=== PATIENT | male | born 1955 | race Caucasian/White ===

== ENCOUNTER → 2018-03-12 10:22 | Outpatient (CLI) | payer OTHER, SELFPAY ==
[2018-03-12 12:21] LABS: Hemoglobin A1c 9.6 % (4.2-6.3)
== END ==
PROVIDERS: Family Provider Family Medicine; PCP Family Medicine; Visit Provider Nurse Practitioner Family
DX: E11.9 Type 2 diabetes mellitus without complications (principal)
CPT/HCPCS: 36415; 83036

== ENCOUNTER 2018-04-04 08:04 | Outpatient (RCR) | payer OTHER, SELFPAY | END 2018-04-20 23:59 | LOC: DC 08:04 | PROVIDERS: Family Provider Family Medicine; PCP Family Medicine; Visit Provider Nurse Practitioner Family | DX: E11.9 Type 2 diabetes mellitus without complications (principal); Z71.3 Dietary counseling and surveillance | CPT/HCPCS: G0108 ==

== ENCOUNTER 2018-05-16 08:30 | Outpatient (RCR) | payer OTHER, SELFPAY | END 2018-05-16 23:59 | LOC: DC 08:30 | PROVIDERS: Family Provider Family Medicine; PCP Family Medicine; Visit Provider Nurse Practitioner Family | DX: E11.9 Type 2 diabetes mellitus without complications (principal); Z71.3 Dietary counseling and surveillance | CPT/HCPCS: 97802; 97803 ==

== ENCOUNTER → 2018-06-12 07:57 | Outpatient (CLI) | payer OTHER, SELFPAY ==
[2018-06-12 10:48] LABS: Microalbumin,Random Urine 41.3 mg/L (NO RANGE EST.)
[2018-06-12 10:57] LABS: Hemoglobin A1c 8.3 % (4.2-6.3)
== END ==
PROVIDERS: Family Provider Family Medicine; PCP Family Medicine; Visit Provider Nurse Practitioner Family
DX: I10 Essential (primary) hypertension (principal); E11.9 Type 2 diabetes mellitus without complications
CPT/HCPCS: 36415; 82043; 82570; 83036

== ENCOUNTER 2018-06-27 11:54 | Outpatient (RCR) | payer OTHER, SELFPAY | END 2018-07-21 23:59 | LOC: DC 11:54 | PROVIDERS: Family Provider Family Medicine; PCP Family Medicine; Visit Provider Nurse Practitioner Family | DX: E11.9 Type 2 diabetes mellitus without complications (principal); Z71.3 Dietary counseling and surveillance ==

== ENCOUNTER 2018-07-25 08:36 | Outpatient (RCR) | payer OTHER, SELFPAY | END 2018-08-21 23:59 | LOC: DC 08:36 | PROVIDERS: Family Provider Family Medicine; PCP Family Medicine; Visit Provider Nurse Practitioner Family | DX: E11.9 Type 2 diabetes mellitus without complications (principal); Z71.3 Dietary counseling and surveillance ==

== ENCOUNTER → 2018-08-14 11:43 | Outpatient (CLI) | payer OTHER, SELFPAY ==
[2018-08-14 14:32] LABS: Hemoglobin A1c 7.7 % (4.2-6.3)
== END ==
PROVIDERS: Family Provider Nurse Practitioner Family; PCP Nurse Practitioner Family; Referring Provider Physician Assistant Surgical; Visit Provider Physician Assistant Surgical
DX: E11.9 Type 2 diabetes mellitus without complications (principal); M17.12 Unilateral primary osteoarthritis, left knee
CPT/HCPCS: 36415; 83036

== ENCOUNTER → 2018-09-18 07:13 | Outpatient (CLI) | payer OTHER, SELFPAY ==
[2018-09-18 10:17] LABS: Absolute Neutrophil Count 3.8 X10^3/uL (2.0-7.7); Basophil# 0.04 X10^3/uL; Basophil% 0.6 % (0-1); Eosinophil# 0.17 X10^3/uL; Eosinophils% 2.4 % (0-5); Hematocrit 47.4 % (40-54); Hemoglobin 15.6 g/dl (13.0-16.5); Lymphocyte % 37.3 % (19-41); Mean Corp Hgb Conc 32.9 g/gl (32-36); Mean Corpuscular Hgb 30.4 pg (27.0-32.0); Mean Corpuscular Volume 92.4 fL (80-94); Mean Platelet Vol. 10.7 fl (6.2-12.0); Monocyte# 0.54 X10^3/uL; Monocyte% 7.5 % (0-10); Neutrophil # 3.77 X10^3/uL (2.7-7.7); Neutrophil % 52.1 % (47-70); POSITIVE COUNT NO; POSITIVE DIFFERENTIAL NO; POSITIVE MORPHOLOGY NO; Platelet Count 238 K/mm3 (150-450); RBC Distribution Width CV 13.1 % (11.6-14.6); RBC Distribution Width SD 44.5 fl (35.1-43.9); Red Blood Count 5.13 M/mm3 (4.6-6.2); White Blood Count 7.2 K/mm3 (4.4-11.0)
[2018-09-18 10:30] LABS: Anion Gap 7 (5-15); BUN 15 mg/dL (7-18); BUN/Creat Ratio 15.6 RATIO (10-20); Calcium,Total 8.6 mg/dL (8.5-10.1); Chloride 107 mmol/L (98-107); Cholesterol 142 mg/dL (200); Creatinine, Serum 0.96 mg/dL (0.70-1.30); EST Glomerular Filtration Rate 83 mL/min (>60); Est Glom Filt Rate - Afr Amer 101 mL/min (>60); Glucose 156 mg/dL (74-106); High Density Lipoprotein 35 mg/dL; Potassium 3.8 mmol/L (3.5-5.1); Sodium Level 144 mmol/L (136-145); Triglycerides 136 mg/dL; Very Low Density Lipoprotein 27 mg/dL (5-40)
[2018-09-18 10:33] LABS: Hemoglobin A1c 8.1 % (4.2-6.3)
--- NOTE | 2018-09-18 10:34 | RAD_ITS ---
HISTORY: pre-op clearance EXAM: XR Chest 2 Views: COMPARISON: None FINDINGS: Normal heart size. Right upper lobe small calcified granuloma. On the PA view, and approximately 9 mm nodular opacity projects over the anterolateral left sixth rib. Diagnostic considerations would include benign summation shadow, nipple artifact, or possibly pulmonary nodule. No vascular congestion, pleural effusion, or acute pulmonary infiltration. No pneumothorax. Hypertrophic degenerative changes of the lower dorsal spine. RAD/Chest PA and Lateral IMPRESSION: 1. Left lung nipple shadow, benign summation density, or possibly pulmonary nodule. 2. Recommend repeat PA view chest with nipple markers together with AP lordotic chest. 3. No pneumonia or acute disease. 4. Old granulomatous disease. at 0515 Reported and signed by: Estuardo Emery MD Electronically Signed: Estuardo Emery, at 5:39 EST Tel , Service support ,
--- NOTE | 2018-09-18 10:45 | EKG12_ITS ---
Test Reason : PRE-OP Blood Pressure : / mmHG Vent. Rate : 081 BPM Atrial Rate : 081 BPM P-R Int : 148 ms QRS Dur : 088 ms QT Int : 374 ms P-R-T Axes : 032 008 077 degrees QTc Int : 434 ms Normal sinus rhythm Normal ECG Confirmed by MEG GARCIA, KANNAN ([id number]), fan mail editor ADONAY FRANKLIN ([id number]) on 09/20/2018 2:00:21 PM Referred By: Mike Nickerson Confirmed By:KANNAN WEAVER MD
--- OUTSIDE RECORDS SUMMARY | 2018-11-13 11:47 | XMS RPT_ITS ---
:1955 Author Organization OHIP Support Name Relationship Address Phone JULIETTE [place] Unavailable [address] + [place] [address] NUCOR Unavailable [address] +[place] [address] ONDINA, JULIETTE Unavailable [address] + [place] [address] NUCOR Unavailable [address] +[place] [address] ONDINA, JULIETTE Unavailable [address] + [place] [address] ONDINA, JULITETE Unavailable [address] + [place] [address] ONDINA, JULIETTE Unavailable [address] + [place] [address] NUCOR Unavailable [address] +[place] [address] ONDINA, JULIETTE Unavailable [address] + [place] [address] NUCOR Unavailable [address] +[place] [address] ONDINA, JULIETTE Unavailable [address] + [place] [address] NUCOR Unavailable [address] +[place] [address] ONDINA, JULIETTE Unavailable [address] + [place] [address] NUCOR Unavailable [address] +[place] [address] ONDINA, JULIETTE Unavailable [address] + [place] [address] NUCOR Unavailable [address] +[place] [address] ONDINA, JULIETTE Unavailable [address] + [place] [address] ONDINA, JULIETTE Unavailable [address] + [place] [address] ONDNIA, JULIETTE Unavailable [address] + [place] [address] ONDINA, JULIETTE Unavailable [address] + [place] [address] ONDINA, JULIETTE Unavailable [address] + [place] [address] ONDINA, JULIETTE Unavailable [address] + [place] [address] ONDINA, JULIETTE Unavailable [address] + [place] [address] ONDINA, JULIETTE Unavailable [address] + [place] [address] ONDINA, JULIETTE Unavailable [address] + [place] [address] NUCOR Unavailable [address] +[place] [address] NUCOR Unavailable [address] +[place] [address] NUCOR Unavailable [address] +[place] [address] NUCOR Unavailable [address] +[place] [address] NUCOR Unavailable [address] +[place] [address] NUCOR Unavailable UNK +[place] [address] NUCOR Unavailable UNK +[place] [address] ONDINA, JULIETTE Unavailable [address] + [place] [address] NUCOR Unavailable [address] +[place] [address] NUCOR Unavailable UNK +[place] [address] NUCOR Unavailable UNK +[place] [address] NUCOR Unavailable UNK +[place] [address] NUCOR Unavailable UNK +[place] [address] NUCOR Unavailable UNK +[place] [address] NUCOR Unavailable UNK +[place] [address] ONDINA, JULIETTE Unavailable [address] + [place] [address] ONDINA, JULIETTE Unavailable [address] + [place] [address] ONDINA, JULIETTE Unavailable [address] + [place] [address] ONDINA, JULIETTE Unavailable [address] + [place] [address] R Unavailable Unavailable Unavailable ONDINAELIDIA WHITMORERA Unavailable [address] + [place] [address] ONDINA, JULIETTE Unavailable [address] + [place] [address] Care Team Providers Name Role Phone SHER HAYES DOTabitha Attending Unavailable BROWN, NIURKA Primary Care Unavailable BROWN, NIURKA Attending Unavailable BROWN, NIURKA Primary Care Unavailable BROWN, NIURKA Attending Unavailable BROWN, NIURKA Primary Care Unavailable RICKI RIVERA MD Attending Unavailable BROWN, NIURKA Primary Care Unavailable DELROY FLORENCE MD Attending Unavailable BROWN, NIURKA Primary Care Unavailable DELROY FLORENCE MD Attending Unavailable BROWN, NIURKA Primary Care Unavailable DELROY FLORENCE MD Attending Unavailable BROWN, NIURKA Primary Care Unavailable DELROY FLORENCE MD Attending Unavailable BROWN, NIURKA Primary Care Unavailable Mike Nickerson CHILD DEVELOPMENT PROFESSOR-C Attending Unavailable Brown, Niurka Referring Unavailable Yumiko Carreon Attending Unavailable NickersonMike CHILD DEVELOPMENT PROFESSOR-C Attending Unavailable Brown, Niurka Referring Unavailable Brown, Niurka Primary Care Unavailable NickersonMike che CHILD DEVELOPMENT PROFESSOR-C Attending Unavailable NickersonMike CHILD DEVELOPMENT PROFESSOR-C Referring Unavailable Brown, Niurka Primary Care Unavailable NickersonMike CHILD DEVELOPMENT PROFESSOR-C Attending Unavailable Brown, Niurka Primary Care Unavailable NickersonMike CHILD DEVELOPMENT PROFESSOR-C Attending Unavailable Brown, Niurka Primary Care Unavailable NickersonMike che CHILD DEVELOPMENT PROFESSOR-C Attending Unavailable Brown, Niurka Referring Unavailable Brown, Niurka Primary Care Unavailable NickersonMike che CHILD DEVELOPMENT PROFESSOR-C Attending Unavailable Brown, Niurka Referring Unavailable Brown, Niurka Primary Care Unavailable NickersonMike che CHILD DEVELOPMENT PROFESSOR-C Attending Unavailable Brown, Niurka Primary Care Unavailable Yumiko Carreon Attending Unavailable Gladis Lockett Attending Unavailable Mike Nickerson CHILD DEVELOPMENT PROFESSOR-C Attending Unavailable Mike Nickerson CHILD DEVELOPMENT PROFESSOR-C Referring Unavailable Brown, Niurka Primary Care Unavailable NickersonMike CHILD DEVELOPMENT PROFESSOR-C Attending Unavailable Brown, Niurka Referring Unavailable Brown, Niurka Primary Care Unavailable NickersonMike CHILD DEVELOPMENT PROFESSOR-C Attending Unavailable Brown, Niurka Primary Care Unavailable Jose Raul [place]-C Attending Unavailable Jose Raul [place] PA-C Referring Unavailable NickersonMike CHILD DEVELOPMENT PROFESSOR-C Primary Care Unavailable Brown, Niurka Attending Unavailable Brown, Niurka Referring Unavailable NickersonMike che CHILD DEVELOPMENT PROFESSOR-C Attending Unavailable Mike Nickerson CHILD DEVELOPMENT PROFESSOR-C Referring Unavailable Nickerson, Mike CHILD DEVELOPMENT PROFESSOR-C Primary Care Unavailable Nickerson, Mike CHILD DEVELOPMENT PROFESSOR-C Attending Unavailable Niurka Wilson Referring Unavailable [facility] Attending Unavailable Nickerson, Mike CHILD DEVELOPMENT PROFESSOR-C Referring Unavailable Nickerson, Mike CHILD DEVELOPMENT PROFESSOR-C Primary Care Unavailable Nickerson, Mike CHILD DEVELOPMENT PROFESSOR-C Consulting Unavailable Nickerson, Mike CHILD DEVELOPMENT PROFESSOR-C Attending Unavailable Brown, Niurka Referring Unavailable Nickerson, Mike CHILD DEVELOPMENT PROFESSOR-C Attending Unavailable Nickerson, Mike CHILD DEVELOPMENT PROFESSOR-C Referring Unavailable Brown, Niurka Primary Care Unavailable Isauro, Israel Attending Unavailable Nickerson, Mike CHILD DEVELOPMENT PROFESSOR-C Referring Unavailable PROBLEMS PROBLEMS DATE TYPE CONDITION / CODE ATTENDING STATUS SOURCE 09/20/2018 Unknown Z01.818 - Encounter [facility] for other Community preprocedural Hospital examination / Repository Z01.818(ICD-10) 09/18/2018 Unknown E11.9 - Type 2 Nickerson, Mike [facility] diabetes mellitus CHILD DEVELOPMENT PROFESSOR-C Community without Hospital complications / Repository E11.9(ICD-10) 09/18/2018 Unknown E78.5 - Nickerson, Mike [facility] Hyperlipidemia, CHILD DEVELOPMENT PROFESSOR-C Community unspecified / Hospital E78.5(ICD-10) Repository 09/30/2018 Unknown I10 - Essential [facility]uro, [facility] (primary) [facility] hypertension / Hospital I10(ICD-10) Repository 08/14/2018 Unknown M17.12 - Unilateral [place], [facility] [place] primary Jose Raul PA-[facility] osteoarthritis, Hospital left knee / Repository M17.12(ICD-10) 01/15/2018 Unknown M25.551 - Pain in Nickerson, Mike [facility] [place] right hip / CHILD DEVELOPMENT PROFESSOR-C Community M25.551(ICD-10) Hospital Repository 01/15/2018 Unknown S79.911A - Nickerson, Mike [facility] [place] Unspecified injury CHILD DEVELOPMENT PROFESSOR-C [facility] of right hip, Hospital initial encounter / Repository S79.911A(ICD-10) PROCEDURES PROCEDURES No Procedure Records FoundRESULTS RESULTS CHEST 2 V W/ Observed: 09/26/2018 Status: F Source: [place] APICAL/LORDOTIC 10:18 AM [facility] REPOSITORY [facility] Imaging Services [address] [place] [address] Chest 2 V w/ Apical/Lordotic MR#: [id number] Acct: [id number] Name: RASHID NJ Rep #: [id number] : 1955 M 63 From: Ino Larios DO PCP: Niurka Wilson DO Status: REG CLI Study: Chest 2 V w/ Apical/Lordotic Date of Exam: 09/26/18 Exam# [id number] Ordering Dr: Mike Nickesron CHILD DEVELOPMENT PROFESSOR-C STUDY: X-RAY CHEST REASON FOR EXAM: Male, 63 years old. Questionable nodule. TECHNIQUE: PA and lateral views of the chest. COMPARISON: September 18, 2019. FINDINGS: Nipple markers were utilized Lungs well-expanded. There is a stable nodule in the right upper lobe. A questionable nodule at the left lung base correlates with the nipple marker. There is no demonstrated pleural abnormality. Normal size heart. Normal mediastinum and calista. Normal visualized pulmonary arteries. Normal visualized aortic arch and descending thoracic aorta. There are diffuse degenerative changes of the visualized thoracic spine. There is degenerative osteoarthritis of the bilateral shoulders. There is no demonstrated abnormality of the visualized soft tissue structures of the upper abdomen. RAD/Chest 2 V w/ Apical/Lordotic IMPRESSION: 1. Old granulomatous disease without acute cardiopulmonary process or interval change. 2. The questionable nodule in the left lung base on the prior study correlates with the patient's left nipple. Electronically Signed: Ino Larios DO at 21:06 EST Tel [phone], Service support , CC: Niurka Wilson DO; Mike Nickerson NP Certified Personal Finance Counselor: Signed INTERNAL MEDICINE Observed: 09/24/2018 Status: F Source: [place] OFFICE VISIT 9:55 AM [facility] Internal Medicine [facility] [place] [address] OFFICE VISIT Date of Service: 09/24/18 MR#: [id number] Acct: [id number] Name: RASHID NJ Rep #: [id number] : 1955 Provider: Mike Nickerson NP Age/Sex: 63/M Location: [facility] Status: Signed Intake Vital Signs09/24/18 Body Mass Index (BMI) 29.7 Intake Visit Reasons: A1C 8.1/DR. Garcia CANCELLED SURGERY UNTIL IT DROPS Chief Complaint: A1C needs lowered Is patient in pain?: Yes (right hip) Pain scale (1-10): 10 Allergies acetaminophen [From NyQuil] Allergy (Severe, Verified 09/03/18 14:27) rash dextromethorphan [From NyQuil] Allergy (Severe, Verified 09/03/18 14:27) rash doxylamine [From NyQuil] Allergy (Severe, Verified 09/03/18 14:27) rash Penicillins Allergy (Severe, Verified 09/03/18 14:27) Other pseudoephedrine [From NyQuil] Allergy (Severe, Verified 09/03/18 14:27) rash night quil Allergy (Severe, Uncoded 09/03/18 14:27) rash Medications lovastatin 40 mg tablet 40 mg PO QDAY 03/12/18 [History Confirmed 09/03/18] omeprazole magnesium 20 mg tablet,delayed release 20 mg PO QDAY 03/12/18 [History Confirmed 09/03/18] amlodipine 10 mg tablet 10 mg PO QDAY tab 05/01/18 [History Confirmed 09/03/18] blood pressure monitor kit See Dose Instructions .ROUTE .MEDSUPPLY #1 ea 05/01/18 [Rx Confirmed 09/03/18] empagliflozin 25 mg tablet 25 mg PO QAM #90 tab 06/04/18 [Rx Confirmed 09/03/18] glipizide 5 mg tablet 5 mg PO BID #60 tab 06/04/18 [Rx Confirmed 09/03/18] valsartan 320 mg-hydrochlorothiazide 12.5 mg tablet 1 tab PO QDAY #90 tab 06/04/18 [Rx Confirmed 09/03/18] metformin 1,000 mg tablet 1,000 mg PO BID 06/05/18 [History Confirmed 09/03/18] blood sugar diagnostic strips See Dose Instructions .ROUTE .MEDSUPPLY #50 ea 06/13/18 [Rx Confirmed 09/03/18] blood-glucose meter kit See Dose Instructions .ROUTE .MEDSUPPLY #1 ea 06/13/18 [Rx Confirmed 09/03/18] cyclobenzaprine 10 mg tablet 10 mg PO TID 09/03/18 [History Confirmed 09/03/18] dulaglutide 1.5 mg/0.5 mL subcutaneous pen injector 1.5 mg SC QWEEK #2 ml 09/24/18 [Rx Confirmed 09/24/18] meloxicam 15 mg tablet 15 mg PO DAILY #60 tab 09/24/18 [Rx Confirmed 09/24/18] PFSH Medical History Right leg pain (Acute) Hyperlipidemia (Chronic) Hypertension (Chronic) Type 2 diabetes mellitus (Chronic) Surgical History History of carpal tunnel release (Acute) History of elbow surgery (Acute) Family History Father Diabetes Hypertension Mother Alzheimers disease Social History Smoking Status: Former smoker alcohol intake: current alcohol intake frequency: a few times a month substance use type: does not use what type of physical activity do you participate in: none HPI HPI Chief Complaint: A1C needs lowered Details: RASHID NJ, is a 63 M who presents to the office today for an acute visit of needing his A1c lowered. He has a past medical history as listed above. The patient was scheduled for a total knee replacement right knee by Dr. Florence on 10/01/18. However his surgery was canceled due to his A1c being elevated at 8.1. He continues to admit to pain in the right knee that is fairly constant and is worse with ambulation and radiates to his right hip. He states that he did just recently start taking Trulicity 1.5 mg weekly as opposed to routine weekly between the 1.5 and 0.75 mg weekly. He has not seen diabetic nutrition services yet. He states that the surgery will not be done until his A1c is lowered. He states that his fasting blood sugars range between the 130s and 150s, denies any signs of hypo-or hyperglycemia. he denies any other acute concerns at this time though is requesting a medication for his chronic right hip and knee pain. He states that the Tylenol [id number] is not helping alleviate his pain. It is a 8-10 dull intermittent pain with ambulation. He otherwise denies any fever, chills, nausea, vomiting, shortness of breath, chest pain or pressure, syncope or presyncopal episodes. ROS Const Constitutional: No weight change, body ache, chills, fatigue, sleep problems, fever(s), change in appetite, snoring, weakness, frequent falls, headache(s) or excessive sweating Eyes Eyes: No change in vision, eye pain, light sensitivity or blurry vision ENT ENT: No headache(s), abnormal hearing, ear pain, tinnitus, nasal congestion, sore throat or neck pain Resp Respiratory: No snoring, cough, shortness of breath or wheezing Cardio Cardiology: No excessive sweating, chest pain at rest, chest pain with exertion, shortness of breath, dyspnea on exertion, palpitations, orthopnea or lightheadedness Gastro GI: Positive for abdominal pain (intermittant); no change in bowel habits, constipation, diarrhea, vomiting, nausea/dyspepsia or cramping Genitourinary Male: No painful urination, urinary incontinence, urinary frequency, urinary urgency, blood in urine, testicle pain or other Musc Musculoskeletal: Positive for joint pain and other (right hip and knees); no neck pain, abnormal walking, back pain, limited range of motion, numbness or tingling Skin Skin: No redness, dry skin, itching, lesions, wounds or rash Neuro Neurology: No weakness, frequent falls, headache(s), abnormal hearing, abnormal walking, numbness, tingling, abnormal speech, dizziness or memory loss Psych Psychiatric: No change in appetite, No memory loss, No anxiety, No depression, No Thoughts of harming yourself/Others Endo Endocrine: No fatigue, excessive sweating, cold intolerance, increased thirst/drinking, heat intolerance, flushing or increased hunger Aller/Imm Allergy/Immunologic: No wheezing, itchy eyes, hives or seasonal allergy symptoms Emmanuel/Lymp Hematologic/Lymphatic: No easy bleeding, easy bruising or enlarged lymph nodes Exam Const General: cooperative, comfortable, no acute distress Nutritional Appearance: average body habitus, well nourished Orientation: alert, oriented x3 Limitations: mental status not altered [facility] Head: normal to inspection Ears: hearing grossly normal bilaterally Nose: external nose normal Eyes General: appearance normal, both eyes and all related structures Resp Effort AND Inspection: normal respiratory effort, able to speak in complete sentences, normal respiratory pattern, symmetric chest movement, no audible wheezes, no cough Auscultation: Bilateral: Clear to Auscultation Cardio Palpation: normal PMI Rate: regular rate Heart Sounds: S1 normal, S2 normal, normal S1 and S2, no click, no gallops, no murmurs, no rubs GI Inspection: normal to inspection Auscultation: normal bowel sounds, no hyperactive bowel sounds, no hypoactive bowel sounds Palpation: soft, no hepatosplenomegaly Musc Musculoskeletal: Yes joint tenderness and decreased ROM Cervical Spine: normal cervical lordosis and cervical ROM normal Thoracic/Lumbar Spine: thoracic and lumbar spine normal to inspection Other: Osteoarthritis bilateral knees, crepitus noted BL knees on exam with passive ROM, tenderness noted to palpation of right lateral hip joint. Skin General: no rashes or lesions noted, elasticity normal, turgor normal Lesions: no lesions Rashes: no rashes Neuro General: alert, awake, oriented x3, CN's II-XI intact bilaterally Speech: speech normal Gait: normal gait Motor: muscle tone normal throughout Extrem General: normal to inspection, normal gait, no edema, no pedal edema Psych Appearance: grossly normal Mental Status: mental status grossly normal Affect: normal affect Attitude: cooperative Thought Process: normal Assessment AND Plan 1. Type 2 diabetes mellitus without complication, without long-term current use of insulin E11.9 Plan The patient's most recent A1c was reviewed and was not at goal, 8.1, surgery cancelled due to this. Will make adjustments to his medication regimen including the increase of his trulicty to 1.5 mg weekly. Educated patient on potential side effects of medication and proper instruction on its use. Discussed red flag symptoms that require urgent medical attention. Discussed with patient lifestyle changes, risk factor reduction, and the benefits of maximizing nutrition and exercise. Patient verbalized understanding. Patient to follow-up in 6 weeks with repeat A1c will be done prior. Discussed calling weekly with a log of his blood sugars, if weekly log is still elevated in 2 weeks, may consider adding Lantus to his regimen as his A1c needs brought down prior to his total knee replacement. Patient was also referred to diabetic nutrition services per Orders Orders: Referrals: 2. Essential hypertension I10 Plan Hypertension: Stable on current medications, elevated in office d/t patients pain level, continue to monitor at home, will not make any adjustments at this time. Will continue with current medication regimen, risk factor reduction, and lifestyle modifications. Discussed dietary changes that should be considered which include reducing the amount of sodium intake. 3. Right knee pain M25.561 Plan Pending total right knee replacement. Patient to be restarted on meloxicam 15 mg daily, was previously on 7.5 mg daily and did not find much relief from it and discontinued it. Discussed not taking NSAIDs while on this, may however take Tylenol. If his pain worsens he should follow-up with Pavel Cotton. His surgery was rescheduled for November 12 for his right total knee replacement per Plan Detail Other Medications New: Refilled: Follow Up 6 weeks or sooner if needed Coding Level of Care Code Off vis,est,level 3 Diagnoses Type 2 diabetes mellitus without complication, without long- term current use of insulin E11.9 Diabetes mellitus senior care insulin use: without termite helper use Diabetes mellitus complication status: without complication Essential hypertension I10 Hypertension type: essential hypertension Right knee pain M25.561 09/24/18 0955 <Electronically signed by Mike MEDEROS> Date Mike MEDEROS Cosigner Signature: Date (if applicable) CC: 12 LEAD ELECTROCARDIOGRAM Observed: 09/20/2018 Status: F Source: [place] 2:00 PM [facility] REPOSITORY [facility] Cardiovascular Services [address] [place] [id number] 12 Lead EKG 09/18/18 1100 MR#: [id number] Acct: [id number] Name: RASHID NJ Rep #: [id number] : 1955 63 From: Israel Box MD Attending Dr: Mike Nickerson NP Status: REG CLI Ordering Dr: Mike Nickerson Date: 09/18/18 Location: [facility] Sex: M C Admitted: Test Reason : PRE-OP Blood Pressure : / mmHG Vent. Rate : 081 BPM Atrial Rate : 081 BPM P-R Int : 148 ms QRS Dur : 088 ms QT Int : 374 ms P-R-T Axes : 032 008 077 degrees QTc Int : 434 ms Normal sinus rhythm Normal ECG Confirmed by ISRAEL BOX MD ([id number]), newspaper photo editor ADONAY FRANKLIN ([id number]) on 09/20/2018 2:00:21 PM Referred By: Mike Nickerson Confirmed By:ISRAEL BOX MD 09/20/18 1400 Date Israel Box MD CC: Mike Nickerson CHILD DEVELOPMENT PROFESSOR Signed INTERNAL MEDICINE Observed: 09/18/2018 Status: F Source: [place] OFFICE VISIT 10:40 AM [facility] Internal Medicine [address] [place] [address] [place] [address] OFFICE VISIT Date of Service: 09/18/18 MR#: [id number] Acct: [id number] Name: RASHID NJ Rep #: [id number] : 1955 Provider: Mike Nickerson NP Age/Sex: 63/M Location: [facility] Status: Signed Intake Vital Signs09/18/18 Height 5 ft 9 in 09/18/18 Weight: 201 lb Intake Visit Reasons: 3 MO FU, REQ MAY-SURG CLEAR [facility]THO Chief Complaint: f/u DM and surgical clearance Accompanied by: Is patient in pain?: Yes (right groin) Pain scale (1-10): 5 Allergies acetaminophen [From NyQuil] Allergy (Severe, Verified 09/03/18 14:27) rash dextromethorphan [From NyQuil] Allergy (Severe, Verified 09/03/18 14:27) rash doxylamine [From NyQuil] Allergy (Severe, Verified 09/03/18 14:27) rash Penicillins Allergy (Severe, Verified 09/03/18 14:27) Other pseudoephedrine [From NyQuil] Allergy (Severe, Verified 09/03/18 14:27) rash night quil Allergy (Severe, Uncoded 09/03/18 14:27) rash Medications ibuprofen 200 mg tablet 200 mg PO TID-QID PRN 03/12/18 [History Confirmed 09/03/18] lovastatin 40 mg tablet 40 mg PO QDAY 03/12/18 [History Confirmed 09/03/18] omeprazole magnesium 20 mg tablet,delayed release 20 mg PO QDAY 03/12/18 [History Confirmed 09/03/18] amlodipine 10 mg tablet 10 mg PO QDAY tab 05/01/18 [History Confirmed 09/03/18] blood pressure monitor kit See Dose Instructions .ROUTE .MEDSUPPLY #1 ea 05/01/18 [Rx Confirmed 09/03/18] dulaglutide 1.5 mg/0.5 mL subcutaneous pen injector 1.5 mg SC QWEEK #2 ml 05/01/18 [Rx Confirmed 09/03/18] empagliflozin 25 mg tablet 25 mg PO QAM #90 tab 06/04/18 [Rx Confirmed 09/03/18] glipizide 5 mg tablet 5 mg PO BID #60 tab 06/04/18 [Rx Confirmed 09/03/18] valsartan 320 mg-hydrochlorothiazide 12.5 mg tablet 1 tab PO QDAY #90 tab 06/04/18 [Rx Confirmed 09/03/18] metformin 1,000 mg tablet 1,000 mg PO BID 06/05/18 [History Confirmed 09/03/18] blood sugar diagnostic strips See Dose Instructions .ROUTE .MEDSUPPLY #50 ea 06/13/18 [Rx Confirmed 09/03/18] blood-glucose meter kit See Dose Instructions .ROUTE .MEDSUPPLY #1 ea 06/13/18 [Rx Confirmed 09/03/18] cyclobenzaprine 10 mg tablet 10 mg PO TID 09/03/18 [History Confirmed 09/03/18] meloxicam 7.5 mg tablet 7.5 mg PO BID tab 09/03/18 [History Confirmed 09/03/18] naproxen sodium 550 mg tablet 550 mg PO BID 09/03/18 [History Confirmed 09/03/18] [facility] Medical History Right leg pain (Acute) Hyperlipidemia (Chronic) Hypertension (Chronic) Type 2 diabetes mellitus (Chronic) Surgical History History of carpal tunnel release (Acute) History of elbow surgery (Acute) Family History Father Diabetes Hypertension Mother Alzheimers disease Social History Smoking Status: Former smoker alcohol intake: current alcohol intake frequency: a few times a month substance use type: does not use what type of physical activity do you participate in: none HPI HPI Chief Complaint: f/u DM and surgical clearance Details: RASHID NJ, is a 63 M who presents to the office today for surgical clearance for right knee replacement. He has a PMH as listed above. Patient presents to office today for surgical clearance for a total knee replacement right knee by Dr. Florence that will take place on 10/01/18. He continues to admits to pain in the right knee that is fairly constant and is worse with ambulation. It is somewhat relieved by not walking and use of ibuprofen. He states that his blood sugars has somewhat been elevated recently. He states recent blood sugars have been varying between 130s-200 mg/dL. He denies any chest pain, shortness of breath or difficulty breathing. He admits to normal bowel functions and denies any blood in stool. He denies any urinary frequency, urgency or pain during urination. He does state that he has been under general anesthesia in the past and tolerated it well. The patient otherwise denies any fever, chills, nausea, vomiting, shortness of breath, chest pain or pressure, palpitations, orthopnea, lower extremity edema, syncope or presyncopal episodes. ROS Const Constitutional: No body ache, chills, fatigue, fever(s), frequent falls, headache(s), weight change, sleep problems, change in appetite, snoring, excessive sweating or weakness Eyes Eyes: No blurry vision, change in vision, eye pain or light sensitivity ENT ENT: No headache(s), abnormal hearing, ear pain, tinnitus, nasal congestion, nasal discharge, sore throat or neck pain Resp Respiratory: No snoring, cough, shortness of breath or wheezing Cardio Cardiology: No excessive sweating, chest pain at rest, chest pain with exertion, shortness of breath, dyspnea on exertion, orthopnea, palpitations or lightheadedness Gastro GI: No abdominal pain, change in bowel habits, diarrhea, constipation, vomiting, nausea/dyspepsia or cramping Musc Musculoskeletal: Positive for abnormal walking (Right hip pain), back pain and limited range of motion (Bilateral knees); no neck pain, joint pain, numbness or tingling Skin Skin: No redness, dry skin, itching, lesions, wounds or rash Neuro Neurology: Positive for abnormal walking (Right hip pain); no frequent falls, headache(s), weakness, abnormal hearing, numbness, tingling, abnormal speech, dizziness or memory loss Psych Psychiatric: No change in appetite, No memory loss, No anxiety, No depression, No Thoughts of harming yourself/Others Endo Endocrine: No fatigue, excessive sweating, cold intolerance, increased thirst/drinking, heat intolerance, increased hunger or flushing Aller/Imm Allergy/Immunologic: No wheezing, itchy eyes, seasonal allergy symptoms or hives Emmanuel/Lymp Hematologic/Lymphatic: No easy bleeding, easy bruising or enlarged lymph nodes Exam Const General: cooperative, comfortable, no acute distress Nutritional Appearance: average body habitus, well nourished Orientation: alert, oriented x3 Limitations: mental status not altered HENND Head: normal to inspection Ears: hearing grossly normal bilaterally Nose: external nose normal Eyes General: appearance normal, both eyes and all related structures Resp Effort AND Inspection: normal respiratory effort, able to speak in complete sentences, normal respiratory pattern, symmetric chest movement, no audible wheezes, no cough Auscultation: Bilateral: Clear to Auscultation Cardio Palpation: normal PMI Rate: regular rate Heart Sounds: S1 normal, S2 normal, normal S1 and S2, no click, no gallops, no murmurs, no rubs GI Inspection: normal to inspection Auscultation: normal bowel sounds, no hyperactive bowel sounds, no hypoactive bowel sounds Palpation: soft, no hepatosplenomegaly Musc Musculoskeletal: Yes joint tenderness and decreased ROM Cervical Spine: normal cervical lordosis and cervical ROM normal Thoracic/Lumbar Spine: thoracic and lumbar spine normal to inspection Sacroiliac joints: on the right Negative for not by compression of iliac crest Other: Osteoarthritis bilateral knees, crepitus noted BL knees on exam with passive ROM Skin General: no rashes or lesions noted, elasticity normal, turgor normal Lesions: no lesions Rashes: no rashes Neuro General: alert, awake, oriented x3, CN's II-XI intact bilaterally Speech: speech normal Gait: normal gait Motor: muscle tone normal throughout Extrem General: normal to inspection, normal gait, no edema, no pedal edema Psych Appearance: grossly normal Mental Status: mental status grossly normal Affect: normal affect Attitude: cooperative Thought Process: normal Immunizations Fluad 2017- 65yr up(PF)45 mcg(15 mcgx3)/0.5 mL intramuscular syringe Performing Provider: GATITO Mason Administered by: Bradly Greenfield on 09/18/18 10:02 Dose Route Admin Location Lot Number Expiration Date ND Calliope Player 45 mcg IM Left Deltoid [id number] 04/20/19 [id number] SEQIRUS VIS Given Date VIS Publication Date 09/18/18 09/18/18 Eligibility Eligibility Date Prevnar 13 (PF) Performing Provider: GATITO Mason Administered by: Bradly Greenfield on 09/18/18 10:05 Dose Route Admin Location Lot Number Expiration Date NDC Calliope Player 0.5 mL IM Right Deltoid [id number] 07/21/20 [id number] WYETH/PFIZER VIS Given Date VIS Publication Date 09/18/18 09/18/18 Eligibility Eligibility Date Assessment AND Plan 1. Pre-op evaluation Z01.818 Plan Patient will be cleared for surgery pending results of twelve- lead EKG chest PA lateral. Repeat blood pressure in the office was 138/82. Pending BW at this time. We will forward results to [facility]. Orders Orders: 2. Essential hypertension I10 Plan Hypertension: Controlled on current medications, will not make any adjustments at this time. Will continue with current medication regimen, risk factor reduction, and lifestyle modifications. Discussed dietary changes that should be considered which include reducing the amount of sodium intake. 3. Type 2 diabetes mellitus without complication, without long-term current use of insulin E11.9 Plan Diabetes: Stable at this time. The patient's most recent A1c was reviewed and was improving at 7.7, repeat A1C done today and pending. Did instruct patient that now that he is tolerating the trulicity, he should take the 1.5 mg dose weekly and d/c the .75 dose. Will not make any adjustments to their diabetic medication regimen at this time. Discussed with patient lifestyle changes, risk factor reduction, and the benefits of maximizing nutrition and exercise. Patient verbalized understanding. Patient to follow- up in 3 months with repeat A1c will be done prior. Patient is current on their yearly eye exam and is seeing podiatry for their diabetic foot exam. Orders Orders: 4. Osteoarthritis of knees, bilateral M17.0 Plan Patient scheduled for right knee replacement surgery in 2 weeks. He has obvious crepitus in both knees. He states he has pain in both knees and right hip and is using a cane to assist him in ambulation. He denies any numbness or tingling in any extremity. He states he is using the Mobic naproxen and ibuprofen as needed for pain bilaterally in his knees, but does not take in conjunction together. Plan Detail Other Orders Orders: Other Medications Discontinued: Fluad 2017- 65yr up(PF)45 mcg(15 mcgx3)/0.5 mL intr45 mcg (0.5 mL) IM ONCE #1 0RF NS Z23 amuscular syringe (flu vac 2017 [id number](PF)) Discontinued Reason: Office Medication has been Doc umented as given Health Concerns influenza and prev 13 vaccine given during today's office visit, patient verbalized understanding of the risks and benefits of the procedure. Patient monitored for 15 minutes after administration and tolerated the procedure well. No signs of reaction at this time. Patient education given.Patient educated on [id number] analgesics that may be appropriate for site discomfort. Follow Up 3 months or as Coding Level of Care Code Off vis,est,level 3 Diagnoses Pre-op evaluation Z01.818 Essential hypertension I10 Hypertension type: essential hypertension Type 2 diabetes mellitus without complication, without long- term current use of insulin E11.9 Diabetes mellitus termite helper insulin use: without senior care use Diabetes mellitus complication status: without complication Osteoarthritis of knees, bilateral M17.0 09/18/18 1040 <Electronically signed by Mike MEDEROS> Date Mike MEDEROS Cosigner Signature: Date (if applicable) CC: CHEST PA AND LATERAL Observed: 09/18/2018 Status: F Source: [facility] Imaging Services [address] [place] [address] Chest PA and Lateral MR#: [id number] Acct: [id number] Name: RASHID NJ Rep #: [id number] : 1955 M 63 From: Estuardo Emery MD PCP: Mike Nickerson NP Status: REG CLI Study: Chest PA and Lateral Date of Exam: 09/18/18 Exam# [id number] Ordering Dr: Mike Nickerson CHILD DEVELOPMENT PROFESSOR-C HISTORY: pre-op clearance EXAM: XR Chest 2 Views: COMPARISON: None FINDINGS: Normal heart size. Right upper lobe small calcified granuloma. On the PA view, and approximately 9 mm nodular opacity projects over the anterolateral left sixth rib. Diagnostic considerations would include benign summation shadow, nipple artifact, or possibly pulmonary nodule. No vascular congestion, pleural effusion, or acute pulmonary infiltration. No pneumothorax. Hypertrophic degenerative changes of the lower dorsal spine. RAD/Chest PA and Lateral IMPRESSION: 1. Left lung nipple shadow, benign summation density, or possibly pulmonary nodule. 2. Recommend repeat PA view chest with nipple markers together with AP lordotic chest. 3. No pneumonia or acute disease. 4. Old granulomatous disease. at 0541 Reported and signed by: Estuardo Emery MD Electronically Signed: Estuardo Emery, at 5:39 EST Tel , Service support , CC: Mike Nickerson NP Certified Personal Finance Counselor: Signed CBC W/DIFF, AUTOMATED Collected: 09/18/2018 Status: F Source: [place] 7:16 AM [facility] REPOSITORY TYPE CODE TESTS RESULT OUT OF RANGE REFERENCE UNITS LAB L100.1000 4.4-11.0 K/mm3 Normal WBC 7.2 LAB L100.1200 4.6-6.2 M/mm3 Normal RBC 5.13 LAB L100.1300 13.0-16.5 g/dl Normal HGB 15.6 LAB L100.1400 40-54 % Normal HCT 47.4 LAB L100.1500 80-94 fL Normal MCV 92.4 LAB L100.1600 27.0-32.0 pg Normal MCH 30.4 LAB L100.1700 32-36 g/gl Normal MCHC 32.9 LAB L100.1810 11.6-14.6 % Normal RDW CV 13.1 LAB L100.1820 35.1-43.9 fl High RDW SD 44.5 LAB L100.1900 150-450 K/mm3 Normal PLT 238 LAB L100.2000 6.2-12.0 fl Normal MPV 10.7 LAB L100.2100 47-70 % Normal NEUT% 52.1 LAB L100.2200 19-41 % Normal LY% 37.3 LAB L100.2300 0-10 % Normal MONO% 7.5 LAB L100.2400 0-5 % Normal EO% 2.4 LAB L100.2500 0-1 % Normal BASO% 0.6 LAB L100.2550 0.0-0.9 % Normal IM GRAN % 0.100 Result Comment: IG% - Immature Granulocytes (promyelocytes, myelocytes and metamyelocytes) > 1% indicates that a LEFT SHIFT is Present. LAB L100.2620 2.0-7.7 X10 3/uL Normal Absolute Neut 3.8 LAB L100.2720 0.83-4.51 X10 3/ul Normal Absolute Lymph 2.70 Performed By: #### L100.0100 #### [facility] [address] [place], [address] BASIC METABOLIC Collected: 09/18/2018 Status: F Source: [facility] PROFILE ([facility]) 7:16 AM [facility] REPOSITORY TYPE CODE TESTS RESULT OUT OF RANGE REFERENCE UNITS LAB L501.0100 74-106 mg/dL High GLU 156 Result Comment: Fasting Glucose result greater than or equal to 126 mg/dL suggests DIABETES MELLITUS per A.D.A. criteria. Please note revised GLUCOSE reference range effective 2017. LAB L501.1000 7-18 mg/dL Normal BUN 15 LAB L501.1100 0.70-1.30 mg/dL Normal CREAT,SERUM 0.96 Result Comment: The validity of the calculated GFR AND GFRAA in patients over 70 years has not been determined. Clinical correlation is essential. LAB L501.1110 >60 mL/min Normal EST GFR 83 Result Comment: Non- GFR Calc LAB L501.1115 >60 mL/min Normal EST GFR - AA 101 Result Comment: GFR Calc LAB L501.1300 10-20 RATIO Normal BUN/CRE 15.6 LAB L501.2200 8.5-10.1 mg/dL CA Normal 8.6 LAB L501.5300 136-145 mmol/L NA Normal 144 LAB L501.5600 3.5-5.1 mmol/L K Normal 3.8 LAB L501.5900 98-107 mmol/L CL Normal 107 LAB L501.6100 21.0-32.0 mmol/L Normal CO2 30.0 LAB L501.6200 5-15 Normal GAP 7 Performed By: #### L500.2500, L500.4100 #### [facility] [address] [place], [place], [id number] LIPID PROFILE Collected: 09/18/2018 Status: F Source: [facility] 7:16 AM [facility] REPOSITORY TYPE CODE TESTS RESULT OUT OF RANGE REFERENCE UNITS LAB L501.4900 200 mg/dL Normal CHOL 142 Result Comment: <200 mg/dL Desirable 200-240 mg/dL Borderline >240 mg/dL High Risk LAB L501.5000 mg/dL Normal TRIG 136 Result Comment: The drugs N-Acetylcysteine and Metamizole may falsely depress this assay. Serum Triglycerides Reference Interval Normal <150 mg/dL Borderline high 150 - 199 mg/dL High 200 - 499 mg/dL Very High > or = 500 mg/dL LAB L501.6400 mg/dL Low HDL 35 Result Comment: The drugs N-Acetylcysteine and Metamizole may falsely depress this assay. Reference Range HDL <40 mg/dL Low HDL Cholesterol HDL >or= 60 mg/dL High HDL Cholesterol LAB L501.6500 0-130 mg/dL Normal LDL 80 LAB L501.6600 5-40 mg/dL Normal VLDL 27 Performed By: #### L500.2500, L500.4100 #### [facility] [address] [facility] [place], [place], [id number] HEMOGLOBIN A1C Collected: 09/18/2018 Status: F Source: [facility] 7[facility] TYPE CODE TESTS RESULT OUT OF RANGE REFERENCE UNITS LAB L501.9985 4.2-6.3 % High HGB A1C 8.1 Performed By: #### L501.9985 #### [facility] [address] [place], [address] INTERNAL MEDICINE Observed: 09/03/2018 Status: F Source: [facility] OFFICE VISIT 2:56 PM [facility] REPOSITORY [facility] [address] [place] [address] OFFICE VISIT Date of Service: 09/03/18 MR#: [id number] Acct: [id number] Name: RASHID NJ Rep #: [id number] : 1955 Provider: Niurka Wilson DO Age/Sex: 63/M Location: [facility] Status: Signed Intake Vital Signs09/03/18 Height 5 ft 9 in 09/03/18 Weight: 211 lb 09/03/18 Body Mass Index (BMI) 31.1 09/03/18 Blood Pressure 190/89 H Intake Visit Reasons: FU ER - Lt Hip pain Chief Complaint: Rt Hip pain - FU ER Is patient in pain?: Yes (Rt Hip) Pain scale (1-10): 9 Allergies acetaminophen [From NyQuil] Allergy (Severe, Verified 09/03/18 14:27) rash dextromethorphan [From NyQuil] Allergy (Severe, Verified 09/03/18 14:27) rash doxylamine [From NyQuil] Allergy (Severe, Verified 09/03/18 14:27) rash Penicillins Allergy (Severe, Verified 09/03/18 14:27) Other pseudoephedrine [From NyQuil] Allergy (Severe, Verified 09/03/18 14:27) rash night quil Allergy (Severe, Uncoded 09/03/18 14:27) rash Medications ibuprofen 200 mg tablet 200 mg PO TID-QID PRN 03/12/18 [History Confirmed 09/03/18] lovastatin 40 mg tablet 40 mg PO QDAY 03/12/18 [History Confirmed 09/03/18] omeprazole magnesium 20 mg tablet,delayed release 20 mg PO QDAY 03/12/18 [History Confirmed 09/03/18] amlodipine 10 mg tablet 10 mg PO QDAY tab 07/11/18 [History Confirmed 09/03/18] blood pressure monitor kit See Dose Instructions .ROUTE .MEDSUPPLY #1 ea 05/01/18 [Rx Confirmed 09/03/18] dulaglutide 1.5 mg/0.5 mL subcutaneous pen injector 1.5 mg SC QWEEK #2 ml 05/01/18 [Rx Confirmed 09/03/18] empagliflozin 25 mg tablet 25 mg PO QAM #90 tab 06/04/18 [Rx Confirmed 09/03/18] glipizide 5 mg tablet 5 mg PO BID #60 tab 06/04/18 [Rx Confirmed 09/03/18] valsartan 320 mg-hydrochlorothiazide 12.5 mg tablet 1 tab PO QDAY #90 tab 06/04/18 [Rx Confirmed 09/03/18] metformin 1,000 mg tablet 1,000 mg PO BID 06/05/18 [History Confirmed 09/03/18] blood sugar diagnostic strips See Dose Instructions .ROUTE .MEDSUPPLY #50 ea 06/13/18 [Rx Confirmed 09/03/18] blood-glucose meter kit See Dose Instructions .ROUTE .MEDSUPPLY #1 ea 06/13/18 [Rx Confirmed 09/03/18] cyclobenzaprine 10 mg tablet 10 mg PO TID 09/03/18 [History Confirmed 09/03/18] meloxicam 7.5 mg tablet 7.5 mg PO BID tab 09/03/18 [History Confirmed 09/03/18] naproxen sodium 550 mg tablet 550 mg PO BID 09/03/18 [History Confirmed 09/03/18] PFSH Medical History Right leg pain (Acute) Hyperlipidemia (Chronic) Hypertension (Chronic) Type 2 diabetes mellitus (Chronic) Surgical History History of carpal tunnel release (Acute) History of elbow surgery (Acute) Family History Father Diabetes Hypertension Mother Alzheimers disease Social History Smoking Status: Former smoker alcohol intake: current alcohol intake frequency: a few times a month substance use type: does not use what type of physical activity do you participate in: none HPI HPI Chief Complaint: Rt Hip pain - FU ER Details: RASHID NJ, is a 63 M who presents to the office today for Right back pain, classic disc pain, needs MRI from [facility] Const Constitutional: No chills, fatigue, fever(s), frequent falls, malaise, weakness, sleep problems or change in appetite Eyes Eyes: No blurry vision, change in vision, double vision, discharge or visual disturbances ENT ENT: No abnormal hearing, ear pain, ear pressure, tinnitus or dizziness/vertigo Resp Respiratory: No cough, shortness of breath or wheezing Cardio Cardiology: No chest pain at rest, chest pain with exertion, shortness of breath, dyspnea on exertion, generalized swelling, irregular heart rhythm, lightheadedness, orthopnea, fast heart rate or palpitations Gastro GI: No abdominal pain, change in bowel habits, constipation, diarrhea, nausea/dyspepsia or vomiting Musc Musculoskeletal: Positive for joint pain (Rt hip); no back pain, joint swelling, limited range of motion, numbness or tingling Skin Skin: No change in skin color, itching, rash or wounds Breast Breast: No breast lump or breast pain Neuro Neurology: No frequent falls, weakness, visual disturbances, abnormal hearing, numbness, tingling, unsteady gait/balance, dizziness, loss of vision or memory loss Psych Psychiatric: No change in appetite, No memory loss, No anxiety, No depression, No Thoughts of harming yourself/Others Endo Endocrine: No fatigue, heat intolerance, increased thirst/drinking, increased hunger or increased urination Aller/Imm Allergy/Immunologic: No wheezing, itchy eyes or seasonal allergy symptoms Emmanuel/Lymp Hematologic/Lymphatic: No easy bleeding, easy bruising or enlarged lymph nodes Exam Const General: in distress moderate Nutritional Appearance: well nourished Cardio Rate: regular rate Rhythm: regular rhythm Musc Thoracic/Lumbar Spine: straight leg raise positive right: at 40 degrees, lumbar spinal tenderness at L5 Extrem General: normal to inspection Assessment AND Plan Problems 1. Lumbar disc disease with radiculopathy M51.16 Plan Patient was seen with severe right hip pain. On exam the pain really is more her right sciatic notch pain and he does have a positive straight leg raising test. This happened as he was trying to hook a vehicle up to the toe truck I discussed the possibility that this may be Workmen's Compensation but he denied that. My concern is that he had a lumbar spine CT scan it was for orthopedics a month ago I need to see that scan I think conservative treatment with NSAIDs muscle relaxants and activity as tolerated is the best way to go on this. He is already taking physical therapy for a problem with the left side of his back and I do not think physical therapy would be any different with this new symptomatology on the right. In order for the results to be sent to our office was sent to [facility] and I will await those findings before I advised him where we go from here. Coding Level of Care Code Off vis,est,level 3 Diagnoses Lumbar disc disease with radiculopathy M51.16 09/03/18 1456 <Electronically signed by Niurka Wilson DO> Date Niurka Wilson DO Cosigner Signature: Date (if applicable) CC: XR PELVIS 1 OR 2 Observed: 09/01/2018 Status: F Source: [facility] 8:16 PM [facility] REPOSITORY ORIGINAL XR PELVIS 1 OR 2 VIEWS CLINICAL STATEMENT: pain Comparison: RIGHT hip and pelvic radiograph 01/13/2018 FINDINGS: The pelvic ring is intact. There is no evidence of a pelvic fracture. There are bilateral degenerative changes of the hip joints which appear similar to the prior study. The SI joints and symp hysis pubis are well maintained. No suspicious osseous lesions are identified. Enthesopathy seen along the iliac wings. IMPRESSION: No acute fracture or subluxation. Degenerative changes of the hips. I have personally reviewed the images of this examination and agree with the resident's findings and interpretation. Interpreted By: Sher Vivas MD Preliminary Report By: Cornell Freedman MD Electronically Signed By: Sher Vivas MD Dictated Date: 09/01/2018 8:19:33 PM Prelim Date: 09/01/2018 8:21:31 PM Sign Date: 09/01/2018 8:46:02 PM HEMOGLOBIN A1C Collected: 08/14/2018 Status: F Source: [facility] 11:48 AM [facility] REPOSITORY TYPE CODE TESTS RESULT OUT OF RANGE REFERENCE UNITS LAB L501.9985 4.2-6.3 % High HGB A1C 7.7 Performed By: #### L501.9985 #### [facility] [address] [place], [address] INTERNAL MEDICINE Observed: 06/14/2018 Status: F Source: [facility] OFFICE VISIT 3:31 PM [facility] REPOSITORY [facility] [address] [place] [address] OFFICE VISIT Date of Service: 06/13/18 MR#: [id number] Acct: [id number] Name: RASHID NJ Rep #: [id number] : 1955 Provider: Mike Nickerson NP Age/Sex: 62/M Location: [facility] Status: Signed Intake Vital Signs06/13/18 Height 5 ft 9 in Intake Visit Reasons: 1 M FU Chief Complaint: follow-up visit Is patient in pain?: Yes (knees) Pain scale (1-10): 4 Allergies acetaminophen [From NyQuil] Allergy (Severe, Verified 05/01/18 08:13) rash dextromethorphan [From NyQuil] Allergy (Severe, Verified 05/01/18 08:13) rash doxylamine [From NyQuil] Allergy (Severe, Verified 05/01/18 08:13) rash Penicillins Allergy (Severe, Verified 01/15/18 10:46) Other pseudoephedrine [From NyQuil] Allergy (Severe, Verified 05/01/18 08:13) rash night quil Allergy (Severe, Uncoded 03/12/18 09:28) rash Medications ibuprofen 200 mg tablet 200 mg PO TID-QID PRN 03/12/18 [History Confirmed 05/01/18] lovastatin 40 mg tablet 40 mg PO QDAY 03/12/18 [History Confirmed 05/01/18] omeprazole magnesium 20 mg tablet,delayed release 20 mg PO QDAY 03/12/18 [History Confirmed 05/01/18] amlodipine 10 mg tablet 10 mg PO QDAY tab 05/01/18 [History] blood pressure monitor kit See Dose Instructions .ROUTE .MEDSUPPLY #1 ea 05/01/18 [Rx Confirmed 05/01/18] dulaglutide 1.5 mg/0.5 mL subcutaneous pen injector 1.5 mg SC QWEEK #2 ml 05/01/18 [Rx Confirmed 05/01/18] empagliflozin 25 mg tablet 25 mg PO QAM #90 tab 06/04/18 [Rx] glipizide 5 mg tablet 5 mg PO BID #60 tab 06/04/18 [Rx] valsartan 320 mg-hydrochlorothiazide 12.5 mg tablet 1 tab PO QDAY #90 tab 06/04/18 [Rx] metformin 1,000 mg tablet 1,000 mg PO BID 06/05/18 [History Confirmed 06/05/18] blood sugar diagnostic strips See Dose Instructions .ROUTE .MEDSUPPLY #50 ea 06/13/18 [Rx Confirmed 06/13/18] blood-glucose meter kit See Dose Instructions .ROUTE .MEDSUPPLY #1 ea 06/13/18 [Rx Confirmed 06/13/18] [facility] Medical History Right leg pain (Acute) Hyperlipidemia (Chronic) Hypertension (Chronic) Type 2 diabetes mellitus (Chronic) Surgical History History of carpal tunnel release (Acute) History of elbow surgery (Acute) Family History Father Diabetes Hypertension Mother Alzheimers disease Social History Smoking Status: Former smoker alcohol intake: current alcohol intake frequency: a few times a month substance use type: does not use what type of physical activity do you participate in: none HPI HPI Chief Complaint: follow-up visit Details: RASHID NJ, is a 62 M who presents to the office today for follow-up on diabetes management and lab work. His past medical history includes hyperlipidemia, hypertension, type 2 diabetes. Patient stated at home his glucose has been running in the 150s checks it daily he is does take his medications on a regular basis for his diabetes management. He stated he continues to see the dietitian at [facility] why weight program and has another follow-up appointment with the dietitian soon. He stated he does eat a majority of his meals at restaurants and tries to eat healthier. He denies any further diarrhea since the first couple of weeks with his Trulicity and since cutting it back to .75 weekly. He does get occasional neuropathy to lower extremities, but this is not new. He is current on eye and podiatry exams. He is also requesting a new glucometer meter because he is unable to find it from last Sunday and it is over 3 years. The patient otherwise denies any fever, chills, nausea, vomiting, shortness of breath, chest pain or pressure, palpitations, orthopnea, lower extremity edema, syncope or presyncopal episodes. ROS Const Constitutional: No weight change, body ache, chills, fatigue, sleep problems, fever(s), change in appetite, snoring, weakness, frequent falls, headache(s) or excessive sweating Eyes Eyes: No change in vision, eye pain, light sensitivity or blurry vision ENT ENT: No headache(s), abnormal hearing, ear pain, tinnitus, nasal congestion, sore throat or neck pain Resp Respiratory: No snoring, cough, shortness of breath or wheezing Cardio Cardiology: No excessive sweating, chest pain at rest, chest pain with exertion, shortness of breath, dyspnea on exertion, palpitations, orthopnea or lightheadedness Gastro GI: No abdominal pain, change in bowel habits, constipation, diarrhea, vomiting, nausea/dyspepsia or cramping Genitourinary Male: No painful urination, urinary incontinence, urinary frequency, urinary urgency, blood in urine, testicle pain or other Musc Musculoskeletal: Positive for tingling (bilateral feet intermittent ), other (knee pain chronic) and numbness (bilateral feet intermittent); no neck pain, abnormal walking, joint pain, back pain, limited range of motion or muscle weakness Skin Skin: No redness, dry skin, itching, lesions, wounds or rash Neuro Neurology: Positive for tingling (bilateral feet intermittent ) and numbness (bilateral feet intermittent); no weakness, frequent falls, headache(s), abnormal hearing, abnormal walking, abnormal speech, dizziness or memory loss Psych Psychiatric: No change in appetite, No memory loss, No anxiety, No depression, No Thoughts of harming yourself/Others Endo Endocrine: No fatigue, excessive sweating, cold intolerance, increased thirst/drinking, heat intolerance, flushing or increased hunger Aller/Imm Allergy/Immunologic: No wheezing, itchy eyes, hives or seasonal allergy symptoms Emmanuel/Lymp Hematologic/Lymphatic: No easy bleeding, easy bruising or enlarged lymph nodes Exam Const General: cooperative, comfortable, no acute distress Nutritional Appearance: average body habitus, well nourished Orientation: alert, oriented x3 Limitations: mental status not altered [facility] Head: normal to inspection, normocephalic, atraumatic Eyes General: appearance normal, both eyes and all related structures Visual Silveira: normal visual silveira by confrontation Alignment and Position: alignment normal Eyelids: eyelids normal Pupils: PERRL Resp Effort AND Inspection: normal respiratory effort, able to speak in complete sentences, normal respiratory pattern, symmetric chest movement, no audible wheezes, no cough Auscultation: Bilateral: Clear to Auscultation Cardio Palpation: normal PMI Rate: regular rate Heart Sounds: S1 normal, S2 normal, normal S1 and S2, no click, no gallops, no murmurs, no rubs Musc Musculoskeletal: No joint tenderness, decreased ROM or muscle weakness Skin General: no rashes or lesions noted Lesions: no lesions Rashes: no rashes Wounds: no wounds Hair: normal Neuro General: alert, awake, oriented x3, gait normal, moves all extremities, decrease sensation to monofilament (right greter than left, minimally.) Cognition: normal cognition Speech: speech normal Gait: normal gait Extrem General: normal to inspection, normal gait, no edema, no pedal edema Psych Appearance: grossly normal Mental Status: mental status grossly normal Affect: normal affect Attitude: cooperative Thought Process: normal Assessment AND Plan 1. Type 2 diabetes mellitus E11.9 Plan Diabetes: Stable at this time. The patient's most recent A1c was reviewed and is improving. Will not make any adjustments to their diabetic medication regimen at this time d/t previous diarrhea with GLP1. Discussed with patient lifestyle changes, risk factor reduction, and the benefits of maximizing nutrition and exercise. Patient verbalized understanding. Patient to follow-up in 3 months with repeat A1c will be done prior. Patient is current on their yearly eye exam and is seeing podiatry for their diabetic foot exam. Patient will continue to see the dietitian at the [facility] at [facility] and has an appointment in June 2018. patient's hemoglobin A1c decreased from 9.6 to 8.3. Patient stated he is tolerating his Trulicity and no further diarrhea. Discussed with patient if he continues to have no further side effects from Trulicity to call in 3 weeks to increase the dose. Patient is also requesting a new glucometer meter due to misplacement and the meter is greater than 3 years old. BMP, CBC with differential, and lipid profile will be done in 3 months. Discussed red flag symptoms and when to seek urgent medical attention. Orders Orders: Medications New: 2. HTN (hypertension) I10 Plan Hypertension: stable on current medications, will not make any adjustments at this time. Will continue with current medication regimen, risk factor reduction, and lifestyle modifications. Discussed dietary changes that should be considered which include reducing the amount of sodium intake. Orders Orders: Plan Detail Other Orders Orders: Other Medications New: blood-glucose meter kit (FreeStyle System K[place]ck blood glucose daily for type 2 DM E11.69 t) Coding Level of Care Code Off vis,est,level 3 Diagnoses Type 2 diabetes mellitus E11.9 HTN (hypertension) I10 06/14/18 1531 <Electronically signed by Mike MEDEROS> Date Mike MEDEROS Cosigner Signature: Date (if applicable) CC: MICROALB:CREAT Collected: 06/12/2018 Status: F Source: [place]INTING,[facility] UR 8:10 AM [facility] REPOSITORY TYPE CODE TESTS RESULT OUT OF RANGE REFERENCE UNITS LAB L501.1200 NO RANGE EST. mg/dL Normal UR CREAT 129.00 LAB L502.0500 NO RANGE EST. mg/L Normal 41.3 MICROALBUMIN ,UR LAB L502.0600 <30 mg/g CRE mg/g CRE High 32.0 MALB:CREAT Performed By: #### L502.0250 #### [facility] [address] [place], [address] HEMOGLOBIN A1C Collected: 06/12/2018 Status: F Source: [place] 8:10 AM [facility] REPOSITORY TYPE CODE TESTS RESULT OUT OF RANGE REFERENCE UNITS LAB L501.9985 4.2-6.3 % High HGB A1C 8.3 Performed By: #### L501.9985 #### [facility] [address] [place], [address] INTERNAL MEDICINE Observed: 05/14/2018 Status: F Source: [place] OFFICE VISIT 3:26 PM [facility] REPOSITORY [facility] [address] [place] [address] OFFICE VISIT Date of Service: 05/14/18 MR#: [id number] Acct: [id number] Name: RASHID NJ Rep #: [id number] : 1955 Provider: Mike Nickerson NP Age/Sex: 62/M Location: [facility] Status: Signed Intake Vital Signs05/14/18 Height 5 ft 9 in 05/14/18 Weight: 198 lb Intake Visit Reasons: DIARRHEA, RED SPOTS Chief Complaint: Diarrhea and rash Acupressure Therapist Required: No Accompanied by: Is patient in pain?: No Allergies acetaminophen [From NyQuil] Allergy (Severe, Verified 05/01/18 08:13) rash dextromethorphan [From NyQuil] Allergy (Severe, Verified 05/01/18 08:13) rash doxylamine [From NyQuil] Allergy (Severe, Verified 05/01/18 08:13) rash Penicillins Allergy (Severe, Verified 01/15/18 10:46) Other pseudoephedrine [From NyQuil] Allergy (Severe, Verified 05/01/18 08:13) rash night quil Allergy (Severe, Uncoded 03/12/18 09:28) rash Medications valsartan 320 mg-hydrochlorothiazide 12.5 mg tablet 1 tab PO QDAY 01/22/18 [History Confirmed 05/01/18] ibuprofen 200 mg tablet 200 mg PO TID-QID PRN 03/12/18 [History Confirmed 05/01/18] lovastatin 40 mg tablet 40 mg PO QDAY 03/12/18 [History Confirmed 05/01/18] metformin ER 1,000 mg 24 hr tablet,extended release 1,000 mg PO QDAY 03/12/18 [History Confirmed 05/01/18] omeprazole magnesium 20 mg tablet,delayed release 20 mg PO QDAY 03/12/18 [History Confirmed 05/01/18] glipizide 5 mg tablet 5 mg PO BID #60 tab 03/13/18 [Rx Confirmed 05/01/18] amlodipine 10 mg tablet 10 mg PO QDAY tab 05/01/18 [History] blood pressure monitor kit See Dose Instructions .ROUTE .MEDSUPPLY #1 ea 05/01/18 [Rx Confirmed 05/01/18] dulaglutide 1.5 mg/0.5 mL subcutaneous pen injector 1.5 mg SC QWEEK #2 ml 05/01/18 [Rx Confirmed 05/01/18] dulaglutide 0.75 mg/0.5 mL subcutaneous pen injector 0.75 mg SC QWEEK #2 ml 05/14/18 [Rx Confirmed 05/14/18] triamcinolone acetonide 0.025 % topical cream 1 applic TOPICAL BID 7 Days #80 g 05/14/18 [Rx Confirmed 05/14/18] PFSH Medical History Right leg pain (Acute) Hyperlipidemia (Chronic) Hypertension (Chronic) Type 2 diabetes mellitus (Chronic) Surgical History History of carpal tunnel release (Acute) History of elbow surgery (Acute) Family History Father Diabetes Hypertension Mother Alzheimers disease Social History Smoking Status: Former smoker alcohol intake: current alcohol intake frequency: a few times a month substance use type: does not use what type of physical activity do you participate in: none HPI HPI Chief Complaint: Diarrhea and rash Details: RASHID NJ, is a 62 M who presents to the office today for an acute visit of diarrhea and rash. He has a past medical history as listed above. The patient states that recently after starting the Trulicity and going up to the 1.5 mg dosing, he noted increasing fatigue, decreased appetite, and diarrhea(2-3 loose stools per day). He does however note that regarding his diabetes mellitus, his blood sugars are better controlled. He denies any sick contacts at this time and denies any other alleviating or aggravating factors. He also brings up a rash that occurred on his bilateral upper arms on May 06, he describes the rash as itchy. He has used [id number] Benadryl cream and tmgw-cer-ohyibsq hydrocortisone cream with mild relief. He denies any new environmental exposures, however he does state that he was out doing yard work and running the [employer] around the time the rash occurred. He denies any other acute complaints at this time. The patient otherwise denies any fever, chills, nausea, vomiting, shortness of breath, chest pain or pressure, palpitations, orthopnea, lower extremity edema, syncope or presyncopal episodes. ROS Const Constitutional: Positive for fatigue and change in appetite; no body ache, chills, fever(s), frequent falls, headache(s), weight change, sleep problems, snoring, excessive sweating or weakness Eyes Eyes: No blurry vision, change in vision, eye pain or light sensitivity ENT ENT: No headache(s), abnormal hearing, ear pain, tinnitus, nasal congestion, nasal discharge, sore throat or neck pain Resp Respiratory: No snoring, cough, shortness of breath or wheezing Cardio Cardiology: No excessive sweating, chest pain at rest, chest pain with exertion, shortness of breath, dyspnea on exertion, orthopnea, palpitations or lightheadedness Gastro GI: Positive for change in bowel habits and diarrhea; no abdominal pain, constipation, vomiting, nausea/dyspepsia or cramping Musc Musculoskeletal: No neck pain, abnormal walking, joint pain, back pain, limited range of motion, numbness, tingling or muscle weakness Skin Skin: Positive for rash; no redness, dry skin, itching, lesions or wounds Neuro Neurology: No frequent falls, headache(s), weakness, abnormal hearing, abnormal walking, numbness, tingling, abnormal speech, dizziness or memory loss Psych Psychiatric: Positive for change in appetite, No memory loss, No anxiety, Positive for depression, No Thoughts of harming yourself/Others Endo Endocrine: Positive for fatigue; no excessive sweating, cold intolerance, increased thirst/drinking, heat intolerance, increased hunger or flushing Aller/Imm Allergy/Immunologic: No wheezing, itchy eyes, seasonal allergy symptoms or hives Emmanuel/Lymp Hematologic/Lymphatic: No easy bleeding, easy bruising or enlarged lymph nodes Exam Const General: cooperative, comfortable, no acute distress Nutritional Appearance: average body habitus, well nourished Orientation: alert, oriented x3 Limitations: mental status not altered Resp Effort AND Inspection: normal respiratory effort, able to speak in complete sentences, normal respiratory pattern, symmetric chest movement, no audible wheezes, no cough Auscultation: Bilateral: Clear to Auscultation Cardio Palpation: normal PMI Rate: regular rate Heart Sounds: S1 normal, S2 normal, normal S1 and S2, no click, no gallops, no murmurs, no rubs GI Inspection: normal to inspection Auscultation: normal bowel sounds Percussion: normal to percussion Musc Musculoskeletal: No muscle weakness Skin General: no rashes or lesions noted, elasticity normal, turgor normal Lesions: no lesions Rashes: no rashes Other: Mild erythematous clustered vesicular rash consistent that of contact dermatitis present on bilateral forearms and left upper arm, no signs of secondary skin infection at this time. Neuro General: alert, awake, oriented x3, CN's II-XI intact bilaterally Speech: speech normal Gait: normal gait Motor: muscle tone normal throughout Extrem General: normal to inspection, normal gait, no edema, no pedal edema Psych Appearance: grossly normal Mental Status: mental status grossly normal Affect: normal affect Attitude: cooperative Thought Process: normal Assessment AND Plan 1. Diarrhea R19.7 Plan Did discuss with patient that loss of appetite, fatigue, and GI side effects such as diarrhea are very common with the addition of Trulicity. Patient does note that his glucoses have been more controlled since starting the Trulicity. Will decrease Trulicity to 0.75 mg weekly and see if this helps with his symptoms. If his symptoms progress or worsen, will discontinue the Trulicity entirely. Discussed red leg symptoms that require urgent medical attention. Discussed with patient to maintain proper hydration and to use an electrolyte replacement drink at this time. Patient verbalized understanding. 2. Contact dermatitis L25.9 Plan Patient symptoms are consistent with that of contact dermatitis, he has a rash on both arms that is gradually improving though is persistent. Will trial triamcinolone cream. Discussed with patient how to properly utilize it and not to place the cream in any sensitive areas since as the face or genitals. Patient verbalized understanding. Patient to notify our office in 3 days if his symptoms are improving. Patient follow-up as previously scheduled or sooner if needed. Spon disclaimer Plan Detail Other Medications New: Coding Level of Care Code Off vis,est,level 3 Diagnoses Diarrhea R19.7 Contact dermatitis L25.9 05/14/18 1526 <Electronically signed by Mike MEDEROS> Date Mike MEDEROS Cosigner Signature: Date (if applicable) CC: INTERNAL MEDICINE Observed: 05/01/2018 Status: F Source: [place] OFFICE VISIT 9:37 AM [facility] [address] [place] [address] [place] [address] OFFICE VISIT Date of Service: 05/01/18 MR#: [id number] Acct: [id number] Name: RASHID NJ Rep #: [id number] : 1955 Provider: Mike Nickerson NP Age/Sex: 62/M Location: [facility] Status: Signed Intake Vital Signs05/01/18 Height 5 ft 9 in 05/01/18 Weight: 208 lb 05/01/18 Body Mass Index (BMI) 30.7 05/01/18 Blood Pressure 199/86 Intake Visit Reasons: 6WK, DIAB, HTN Chief Complaint: diabetes AND BP follow-up Is patient in pain?: Yes (Knees AND hips) Pain scale (1- 10): 5 Allergies acetaminophen [From NyQuil] Allergy (Severe, Verified 05/01/18 08:13) rash dextromethorphan [From NyQuil] Allergy (Severe, Verified 05/01/18 08:13) rash doxylamine [From NyQuil] Allergy (Severe, Verified 05/01/18 08:13) rash Penicillins Allergy (Severe, Verified 01/15/18 10:46) Other pseudoephedrine [From NyQuil] Allergy (Severe, Verified 05/01/18 08:13) rash night quil Allergy (Severe, Uncoded 03/12/18 09:28) rash Medications valsartan 320 mg-hydrochlorothiazide 12.5 mg tablet 1 tab PO QDAY 01/22/18 [History Confirmed 05/01/18] ibuprofen 200 mg tablet 200 mg PO TID-QID PRN 03/12/18 [History Confirmed 05/01/18] lovastatin 40 mg tablet 40 mg PO QDAY 03/12/18 [History Confirmed 05/01/18] metformin ER 1,000 mg 24 hr tablet,extended release 1,000 mg PO QDAY 03/12/18 [History Confirmed 05/01/18] omeprazole magnesium 20 mg tablet,delayed release 20 mg PO QDAY 03/12/18 [History Confirmed 05/01/18] glipizide 5 mg tablet 5 mg PO BID #60 tab 03/13/18 [Rx Confirmed 05/01/18] amlodipine 10 mg tablet 10 mg PO QDAY tab 05/01/18 [History] blood pressure monitor kit See Dose Instructions .ROUTE .MEDSUPPLY #1 ea 05/01/18 [Rx Confirmed 05/01/18] dulaglutide 1.5 mg/0.5 mL subcutaneous pen injector 1.5 mg SC QWEEK #2 ml 05/01/18 [Rx Confirmed 05/01/18] PFSH Medical History Right leg pain (Acute) Hyperlipidemia (Chronic) Hypertension (Chronic) Type 2 diabetes mellitus (Chronic) Surgical History History of carpal tunnel release (Acute) History of elbow surgery (Acute) Family History Father Diabetes Hypertension Mother Alzheimers disease Social History Smoking Status: Former smoker alcohol intake: current alcohol intake frequency: a few times a month substance use type: does not use what type of physical activity do you participate in: none HPI HPI Chief Complaint: diabetes AND BP follow-up Details: RASHID NJ, is a 62 M who presents to the office today for a follow-up of his diabetes and hypertension. He has a past medical history as listed above. The patient was previously placed on amlodipine for his hypertension. He was instructed to take a two-week log and to start at 5 mg daily and then call our office and at that point consider being increased to 10 mg daily. He was given 10 mg tablets and states that he started taking the full dose and only takes it 1-2 times per week when he remembers it. He is hypertensive today in the office and has initial blood pressure is 199/86 and then after resting went down to 176/86. He notes that he forgot to take all of his medications today. Patient states that he often has problems with medication compliance. He also states regarding his type 2 diabetes mellitus that he only checks his blood sugars once or twice per week and when he does check them they are 160s before eating. He states that he tries to take his diabetic medications, however forgets them often as well. He denies any current acute complaints at this time. He does note that he is following up with diabetic nutrition services at this time. The patient otherwise denies any fever, chills, nausea, vomiting, shortness of breath, chest pain or pressure, palpitations, orthopnea, lower extremity edema, syncope or presyncopal episodes. ROS Const Constitutional: No chills, fatigue, fever(s), frequent falls, malaise, weakness, sleep problems or change in appetite Eyes Eyes: No blurry vision, change in vision, double vision, discharge or visual disturbances ENT ENT: No abnormal hearing, ear pain, ear pressure, tinnitus or dizziness/vertigo Resp Respiratory: No cough, shortness of breath or wheezing Cardio Cardiology: No chest pain at rest, chest pain with exertion, shortness of breath, dyspnea on exertion, generalized swelling, irregular heart rhythm, lightheadedness, orthopnea, fast heart rate or palpitations Gastro GI: No abdominal pain, change in bowel habits, constipation, diarrhea, nausea/dyspepsia or vomiting Genitourinary Male: No difficulty urinating, burning urination, painful urination, urinary incontinence, urinary frequency, urinary urgency, urinary hesitancy, urinary retention, blood in urine, Frequent nighttime urination/ nocturia, sexual problems, testicle lump or testicle pain Musc Musculoskeletal: Positive for joint pain (Hips AND Knees) and numbness (Both hands); no back pain, joint swelling, limited range of motion, muscle weakness or tingling Skin Skin: No change in skin color, itching, rash or wounds Breast Breast: No breast lump or breast pain Neuro Neurology: Positive for numbness (Both hands); no frequent falls, weakness, abnormal hearing, tingling, unsteady gait/balance, dizziness, loss of vision, memory loss or visual disturbances Psych Psychiatric: No memory loss, No anxiety, No change in appetite, No depression, No Thoughts of harming yourself/Others Endo Endocrine: No fatigue, heat intolerance, increased thirst/drinking, increased hunger or increased urination Aller/Imm Allergy/Immunologic: No wheezing, itchy eyes or seasonal allergy symptoms Emmanuel/Lymp Hematologic/Lymphatic: No easy bleeding, easy bruising or enlarged lymph nodes Exam Const General: cooperative, comfortable, no acute distress Nutritional Appearance: average body habitus, well nourished Orientation: alert, oriented x3 Limitations: mental status not altered Resp Effort AND Inspection: normal respiratory effort, able to speak in complete sentences, normal respiratory pattern, symmetric chest movement, no audible wheezes, no cough Auscultation: Bilateral: Clear to Auscultation Cardio Palpation: normal PMI Rate: regular rate Heart Sounds: S1 normal, S2 normal, normal S1 and S2, no click, no gallops, no murmurs, no rubs Musc Musculoskeletal: No muscle weakness Skin General: no rashes or lesions noted, elasticity normal, turgor normal Lesions: no lesions Rashes: no rashes Neuro General: alert, awake, oriented x3, CN's II-XI intact bilaterally Speech: speech normal Gait: normal gait Motor: muscle tone normal throughout Extrem General: normal to inspection, normal gait, no edema, no pedal edema Psych Appearance: grossly normal Mental Status: mental status grossly normal Affect: normal affect Attitude: cooperative Thought Process: normal Assessment AND Plan 1. Type 2 diabetes mellitus E11.9 Plan The patient's most recent A1c was reviewed and was not at goal. Will make adjustments to his medication regimen including the addition of trulicity. Her sample dose was given today in the office and patient was educated on how to properly utilize the medication and potential side effects. Educated patient on potential side effects of medication and proper instruction on its use. Discussed red flag symptoms that require urgent medical attention. Discussed with patient lifestyle changes, risk factor reduction, and the benefits of maximizing nutrition and exercise. Patient verbalized understanding. Patient to follow- up in 1 month with repeat A1c will be done prior. Jardiance discontinued due to the addition of Trulicity Orders Orders: 2. HTN (hypertension) I10 Plan Hypertension: Blood pressure is suboptimal at this time. Instructed the patient on the importance of taking his antihypertensives routinely and on a schedule time each day, and start bed and educated that taking them only once or twice per week will not control his blood pressures. A blood pressure cuff prescription was given to be filled and check blood pressure daily for 2 weeks and call with a log. Baseline labs reviewed. Educated patient on the potential side effects of the new medication and to keep a log of their blood pressures at home. Discussed risk factor reduction and lifestyle modifications. Discussed dietary changes that should be considered which include reducing the amount of sodium intake. Patient instructed to follow up in 1 month for hypertension follow up visit. Orders Orders: 3. Noncompliance Z91.19 Plan Overall his noncompliance impact his overall plan of care, educated in depth that been noncompliant with his medications and remain hypertensive and hyperglycemic can be detrimental to his health and ultimately lead to . Patient instructed to remain compliant. Patient to follow-up in 4 weeks or sooner if needed. Plan Detail Other Medications New: blood pressure monitor kit (Blood Pressure KiCheck blood pressure daily for hypertension I t) 10 Discontinued: Follow Up 4 weeks or sooner if needed Coding Level of Care Code Off vis,est,level 3 Diagnoses Type 2 diabetes mellitus E11.9 HTN (hypertension) I10 Noncompliance Z91.19 05/01/18 0937 <Electronically signed by Mike MEDEROS> Date Mike MEDEROS Cosigner Signature: Date (if applicable) CC: INTERNAL MEDICINE Observed: 03/13/2018 Status: F Source: [place] OFFICE VISIT 11:17 AM [facility] [address] [place] [address] OFFICE VISIT Date of Service: 03/12/18 MR#: [id number] Acct: [id number] Name: RASHID NJ Rep #: [id number] : 1955 Provider: Mike Nickerson NP Age/Sex: 62/M Location: [facility] [facility] Status: Signed Intake Vital Signs03/12/18 Height 5 ft 9 in Intake Visit Reasons: diabetes ck for work Dr. Hartman pt Chief Complaint: diabetes follow-up Is patient in pain?: Yes (left hip, knees) Pain scale (1-10): 5 Allergies Penicillins Allergy (Severe, Verified 01/15/18 10:46) Other night quil Allergy (Severe, Uncoded 03/12/18 09:28) rash Medications valsartan 320 mg-hydrochlorothiazide 12.5 mg tablet 1 tab PO QDAY 01/22/18 [History Confirmed 01/22/18] amlodipine 10 mg tablet 5 mg PO QDAY #90 tab 03/12/18 [Rx Confirmed 03/12/18] empagliflozin 25 mg tablet 25 mg PO QAM 03/12/18 [History Confirmed 03/12/18] ibuprofen 200 mg tablet 200 mg PO TID-QID PRN 03/12/18 [History Confirmed 03/12/18] lovastatin 40 mg tablet 40 mg PO QDAY 03/12/18 [History Confirmed 03/12/18] metformin ER 1,000 mg 24 hr tablet,extended release 1,000 mg PO QDAY 03/12/18 [History Confirmed 03/12/18] omeprazole magnesium 20 mg tablet,delayed release 20 mg PO QDAY 03/12/18 [History Confirmed 03/12/18] glipizide 5 mg tablet 5 mg PO BID #60 tab 03/13/18 [Rx] PFSH Medical History Right leg pain (Acute) Hyperlipidemia (Chronic) Hypertension (Chronic) Type 2 diabetes mellitus (Chronic) Surgical History History of carpal tunnel release (Acute) History of elbow surgery (Acute) Family History Father Diabetes Hypertension Mother Alzheimers disease Social History Smoking Status: Former smoker alcohol intake: current alcohol intake frequency: a few times a month substance use type: does not use what type of physical activity do you participate in: none HPI HPI Chief Complaint: diabetes follow-up Details: RASHID NJ, is a 62 M who presents to the office today for a follow-up of his type 2 diabetes mellitus. He has a past medical history which is significant for that of hypertension, hyperlipidemia, and type 2 diabetes mellitus. 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 He does state that he checks his blood sugars infrequently at home and most of the time when he does check them they are around 150. He denies any episodes of hypoglycemia at this time. He is due for an A1c check. His blood pressure is elevated during today's office visit at 172/94. He states he is currently taking his antihypertensives appropriately. He does not monitor his blood pressure at home. He denies any cardiac symptoms and specifically denies any chest pain, vision changes, or headaches. The patient otherwise denies any fever, chills, nausea, vomiting, shortness of breath, chest pain or pressure, palpitations, orthopnea, lower extremity edema, syncope or presyncopal episodes. ROS Const Constitutional: No weight change, body ache, chills, fatigue, sleep problems, fever(s), change in appetite, snoring, weakness, frequent falls, headache(s) or excessive sweating Eyes Eyes: No change in vision, eye pain, light sensitivity or blurry vision ENT ENT: No headache(s), abnormal hearing, ear pain, tinnitus, nasal congestion, sore throat or neck pain Resp Respiratory: No snoring, cough, shortness of breath or wheezing Cardio Cardiology: No excessive sweating, chest pain at rest, chest pain with exertion, shortness of breath, dyspnea on exertion, palpitations, orthopnea or lightheadedness Gastro GI: No abdominal pain, change in bowel habits, constipation, diarrhea, vomiting, nausea/dyspepsia or cramping Genitourinary Male: No painful urination, urinary incontinence, urinary frequency, urinary urgency, blood in urine, testicle pain or other Musc Musculoskeletal: Positive for numbness (hands), tingling and other (knee and left hip pain); no neck pain, abnormal walking, joint pain, back pain or limited range of motion Skin Skin: No redness, dry skin, itching, lesions, wounds or rash Neuro Neurology: Positive for numbness (hands) and tingling; no weakness, frequent falls, headache(s), abnormal hearing, abnormal walking, abnormal speech, dizziness or memory loss Psych Psychiatric: No change in appetite, No memory loss, No anxiety, No depression, No Thoughts of harming yourself/Others Endo Endocrine: No fatigue, excessive sweating, cold intolerance, increased thirst/drinking, heat intolerance, flushing or increased hunger Aller/Imm Allergy/Immunologic: No wheezing, itchy eyes, hives or seasonal allergy symptoms Emmanuel/Lymp Hematologic/Lymphatic: No easy bleeding, easy bruising or enlarged lymph nodes Exam Const General: cooperative, comfortable, no acute distress Nutritional Appearance: average body habitus, well nourished Orientation: alert, oriented x3 Limitations: mental status not altered Resp Effort AND Inspection: normal respiratory effort, able to speak in complete sentences, normal respiratory pattern, symmetric chest movement, no audible wheezes, no cough Auscultation: Bilateral: Clear to Auscultation Cardio Palpation: normal PMI Rate: regular rate Heart Sounds: S1 normal, S2 normal, normal S1 and S2, no click, no gallops, no murmurs, no rubs GI Inspection: normal to inspection Auscultation: normal bowel sounds, no hyperactive bowel sounds, no hypoactive bowel sounds Palpation: soft, no hepatosplenomegaly Skin General: no rashes or lesions noted, elasticity normal, turgor normal Lesions: no lesions Rashes: no rashes Neuro General: alert, awake, oriented x3, CN's II-XI intact bilaterally Speech: speech normal Gait: normal gait Motor: muscle tone normal throughout Extrem General: normal to inspection, normal gait, no edema, no pedal edema Psych Appearance: grossly normal Mental Status: mental status grossly normal Affect: normal affect Attitude: cooperative Thought Process: normal Assessment AND Plan 1. Type 2 diabetes mellitus E11.9 Plan The patient's most recent A1c was reviewed and was not at goal, A1c was 9.6. Will make adjustments to his medication regimen including the increase of his glipizide to 5 mg twice daily. Educated patient on potential side effects of medication and proper instruction on its use. Discussed red flag symptoms that require urgent medical attention. Discussed with patient lifestyle changes, risk factor reduction, and the benefits of maximizing nutrition and exercise. Patient verbalized understanding. Patient to follow- up in 3 months with repeat A1c will be done prior. Given the patient's requirements for work of having an A1c less than 8, he was referred to diabetic nutrition services. He will not require insulin at this time, will try to medically manage him with p.o. diabetic medications at this time Orders Orders: Referrals: 2. HTN (hypertension) I10 Plan Hypertension: Blood pressure is suboptimal at this time. Will make changes to current medication regimen which include the addition of amlodipine 5 mg daily, did give the 10 mg timeframe to break in half in case we titrate up to 10 mg daily. Baseline labs reviewed. Educated patient on the potential side effects of the new medication and to keep a log of their blood pressures at home. Discussed risk factor reduction and lifestyle modifications. Discussed dietary changes that should be considered which include reducing the amount of sodium intake. Patient instructed to follow up in 4-6 weeks for hypertension follow up visit. Instructed in the keep a log of his blood pressures at home and to notify us in 2 weeks with this log and will consider making adjustments at that time if elevated BPs remain. 3. Hyperlipidemia E78.5 Plan The patient does note that he had a recent fasting lipid panel done earlier this year at [facility]. Will request the blood work for continuity of care. Continue with current statin therapy, lifestyle changes and risk factor modification. This note was generated with [employer] software. It may contain incorrect words, spelling, and punctuation that were not noted in checking the note before signing. Plan Detail Other Medications New: Coding Level of Care Code Off vis,est,level 3 Diagnoses Type 2 diabetes mellitus E11.9 HTN (hypertension) I10 Hyperlipidemia E78.5 03/13/18 1117 <Electronically signed by Mike MEDEROS> Date Mike MEDEROS Cosigner Signature: Date (if applicable) CC: HEMOGLOBIN A1C Collected: 03/12/2018 Status: F Source: [facility] [place] 10:27 AM [facility] REPOSITORY TYPE CODE TESTS RESULT OUT OF RANGE REFERENCE UNITS LAB L501.9985 4.2-6.3 % High HGB A1C 9.6 Performed By: #### L501.9985 #### [facility] [address] [place], [address] LIPID Collected: 01/22/2018 Status: F Source: [facility] [employer] 11:07 AM [facility] REPOSITORY TYPE CODE TESTS RESULT OUT OF REFERENCE UNITS RANGE LAB CHOL(LOINC 131-200 mg/dL ) Cholesterol 151 Result Comment: Cholesterol Reference Interval: Less than 200 Desirable 200-239 Borderline high risk 240 and above High risk LAB TRIG(LOINC) 40-150 mg/dL Triglycerides 146 Result Comment: Triglyceride Reference Interval: Less than 150 Normal 150-199 Borderline high risk 200-499 High risk 500 or higher Very high risk LAB HD(LOINC) 35-90 mg/dL HDL Cholesterol 43 Result Comment: HDL Reference Interval: Less than 40 Low - high risk 60 or above Optimal/lowers risk LAB LDL(LOINC) 0-130 mg/dL LDL Cholesterol 79 Result Comment: LDL is a calculated result and requires a 12-hr fast. LDL Reference Interval: Less than 100 Optimal 100-129 Near or above optimal 130-159 Borderline high risk 160-189 High risk 190 and above Very high risk Performed By: #### LIPID, CMP, GFR #### [address] [address] CMP Collected: 01/22/2018 Status: F Source: [facility] 11:07 AM [facility] REPOSITORY TYPE CODE TESTS RESULT OUT OF REFERENCE UNITS RANGE LAB 1547-9 80-115 mg/dL GLUCOSE High 203 LAB NA(LOINC) 136-146 mEq/L Sodium Level 138 LAB K(LOINC) 3.5-5.1 mEq/L Potassium Level 4.5 LAB CL(LOINC) 98-107 mEq/L Chloride 99 LAB CO2(LOINC) 23-31 mEq/L CO2 30 LAB EBAL(LOINC mEq/L ) Electrolyte Balance 9.0 LAB BUN(LOINC) 7.0-18.0 mg/dL BUN High 19.7 LAB CRE(LOINC) 0.6-1.2 mg/dL Creatinine Lvl (s) 1.1 LAB BC(LOINC) 7-27 ratio BUN/Creatinine 18 Ratio LAB CA(LOINC) 8.4-10.2 mg/dL Calcium Lvl 9.9 LAB PROT(LOINC 6.0-8.3 G/dL ) Total Protein 7.1 LAB ALB(LOINC) 3.4-4.8 G/dL Albumin Level 4.5 LAB GLB(LOINC) G/dL Globulin 2.6 LAB AG(LOINC) 1.1-2.5 ratio A/G Ratio 1.7 LAB BILT(LOINC 0.2-1.0 mg/dL ) Bili Total 0.7 LAB AP(LOINC) 40-135 IU/L Alk Phos 107 LAB AST(LOINC) 10-40 IU/L AST/SGOT 13 LAB ALT(LOINC) 10-35 IU/L ALT/SGPT 15 Performed By: #### LIPID, CMP, GFR #### [address] [address] .GFR Collected: 01/22/2018 Status: F Source: [facility] [employer] 11:07 AM [facility] REPOSITORY TYPE CODE TESTS RESULT OUT OF REFERENCE UNITS RANGE LAB GFRAA(LOINC ml/min/1.73 ) sqm GFR 85 Iranian Result Comment: GFR Population mean for , Non- Americans Ages 20-29 = 116 mL/min/1.73 sq.m. Ages 30-39 = 107 mL/min/1.73 sq.m. Ages 40-49 = 99 mL/min/1.73 sq.m. Ages 50-59 = 93 mL/min/1.73 sq.m. Ages 60-69 = 85 mL/min/1.73 sq.m. Ages 70+ = 75 mL/min/1.73 sq.m. Chronic Kidney Disease: Less than 60 mL/min/1.73 square meters End Stage Renal Disease: Less than 15 mL/min/1.73 square meters LAB GFRNO(LOINC) ml/min/1.73sqm GFR Non- >60 Result Comment: GFR Population mean for , Non- Americans Ages 20-29 = 116 mL/min/1.73 sq.m. Ages 30-39 = 107 mL/min/1.73 sq.m. Ages 40-49 = 99 mL/min/1.73 sq.m. Ages 50-59 = 93 mL/min/1.73 sq.m. Ages 60-69 = 85 mL/min/1.73 sq.m. Ages 70+ = 75 mL/min/1.73 sq.m. Chronic Kidney Disease: Less than 60 mL/min/1.73 square meters End Stage Renal Disease: Less than 15 mL/min/1.73 square meters Performed By: #### LIPID, CMP, GFR #### [address] [address] INTERNAL MEDICINE Observed: 01/15/2018 Status: F Source: [place] OFFICE VISIT 2:15 PM [facility] Internal Medicine [address] [place] [address] [place] [address] OFFICE VISIT Date of Service: 01/15/18 MR#: [id number] Acct: [id number] Name: RASHID NJ Rep #: [id number] : 1955 Provider: Mike Nickerson NP Age/Sex: 62/M Location: [facility] Status: Signed Intake Vital Signs01/15/18 Blood Pressure 182/86 01/15/18 Height 5 ft 9 in 01/15/18 Weight: 204 lb 01/15/18 Body Mass Index (BMI) 30.1 01/15/18 Blood Pressure 190/84 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/U Chief Complaint: ER/F/U Is patient in pain?: Yes (Rt upper leg) Pain scale (1-10): 7 Allergies Penicillins Allergy (Severe, Verified 01/15/18 10:46) Other [facility] Medical History Right leg pain (Acute) Hyperlipidemia (Chronic) Hypertension (Chronic) Type 2 diabetes mellitus (Chronic) Surgical History History of carpal tunnel release (Acute) History of elbow surgery (Acute) Family History Father Diabetes Hypertension Mother Alzheimers disease Social History alcohol intake: current alcohol intake frequency: a few times a month substance use type: does not use what type of physical activity do you participate in: none HPI HPI Chief Complaint: ER/F/U Details: RASHID NJ, is a 62 M who presents to the office today for an ER follow-up of right hip pain. The patient has a past medical history as listed above. The patient was seen at [facility] emergency department on 01/13/2018 with complaint of right hip pain. He was walking around a corner at home when he felt a pop in his right hip. He had been uncomfortable with ambulation and utilizing crutches due to the pain. At the emergency department an x-ray of the hip and pelvis was done which demonstrated no acute findings or dislocation and showed degenerative changes in both hips. The patient was discharged home on Toradol and cyclobenzaprine. The patient notes that since going to the emergency department his hip pain has let up some, however is still persistent. He describes as intermittent right buttock and lateral hip 7-10/10 pain that occasionally travels down his right leg. The pain is worsened with walking and alleviated with rest. The patient does note that he has been told in the past he needed a hip replacement. He does state that he works 2 jobs and due to his inability to ambulate without crutches, he is requesting a work excuse. He denies any bowel or bladder dysfunction denies any caudal symptoms. He denies any other alleviating or aggravating factors. He does note that his blood pressure has been significantly elevated due to the pain. He states he is on a blood pressure medication but is unsure what medication. The patient otherwise denies any fever, chills, nausea, vomiting, shortness of breath, chest pain or pressure, palpitations, orthopnea, lower extremity edema, syncope or presyncopal episodes. ROS Const Constitutional: No fever(s), chills, weakness, change in appetite, sleep problems, fatigue, malaise or frequent falls Eyes Eyes: No blurry vision, change in vision, double vision or discharge ENT ENT: No abnormal hearing, ear pain, ear pressure or dizziness/vertigo Resp Respiratory: No cough, wheezing or shortness of breath Cardio Cardiology: No chest pain at rest, chest pain with exertion, shortness of breath, dyspnea on exertion, lightheadedness, irregular heart rhythm, fast heart rate, palpitations, orthopnea or generalized swelling Gastro GI: No abdominal pain, change in bowel habits, constipation, diarrhea, vomiting or nausea/dyspepsia Musc Musculoskeletal: Positive for other (Rt leg/hip pain) and joint pain (right hip); no tingling, numbness, back pain or muscle weakness Skin Skin: No change in skin color, wounds, rash or itching Neuro Neurology: No weakness, frequent falls, abnormal hearing, tingling, unsteady gait/balance, dizziness, loss of vision, numbness or memory loss Psych Psychiatric: No change in appetite, No memory loss, No anxiety, No depression, No Thoughts of harming yourself/Others Endo Endocrine: No fatigue, increased thirst/drinking, increased urination, increased hunger or heat intolerance Aller/Imm Allergy/Immunologic: No wheezing, itchy eyes or seasonal allergy symptoms Emmanuel/Lymp Hematologic/Lymphatic: No easy bleeding, easy bruising or enlarged lymph nodes Exam Const General: cooperative, comfortable, no acute distress Nutritional Appearance: average body habitus, well nourished Orientation: alert, oriented x3 Limitations: mental status not altered Resp Effort AND Inspection: normal respiratory effort, able to speak in complete sentences, normal respiratory pattern, symmetric chest movement, no audible wheezes, no cough Auscultation: Bilateral: Clear to Auscultation Cardio Palpation: normal PMI Rate: regular rate Heart Sounds: S1 normal, S2 normal, normal S1 and S2, no click, no gallops, no murmurs, no rubs Musc Musculoskeletal: No joint tenderness, decreased ROM or muscle weakness Thoracic/Lumbar Spine: straight leg raise positive right: at 30 degrees Other: Point tenderness noted over right medial buttock and right lateral hip, limited range of motion, however able to fully extend and flex the knee and hip. No external or internal rotation. No lower extremity edema or decreased pulses. Neuro General: alert, awake, oriented x3, CN's II-XI intact bilaterally Speech: speech normal Gait: gait assisted Method: crutches Motor: muscle tone normal throughout Extrem General: normal to inspection, normal gait, no edema, no pedal edema Psych Appearance: grossly normal Mental Status: mental status grossly normal Affect: normal affect Attitude: cooperative Thought Process: normal Assessment AND Plan 1. Strain of right hip S76.011A Plan Patient symptoms are consistent with that of a strain of the right hip. However given the degree of pain and the impact on his ambulation, will obtain a CT for further study. Also referred patient to orthopedic doctor for evaluation as he has been told in the past that he needed a hip replacement. Discussed red flag symptoms that require urgent medical attention. No caudal signs and symptoms at this time. Patient to continue with the muscle relaxant and Tylenol and ibuprofen as needed for pain. Instructed patient to ice the affected area. Hesitant to use steroids as patient is a poorly controlled diabetic per report of his fasting glucose is up to 100. Will address his diabetes at his routine visit in 1 month. A work excuse was given 2. HTN (hypertension) I10 Plan Patient's blood pressure is elevated today in the office, patient is unsure what blood pressure medication he is taking. Instructed him to notify our office today with what medication he is taking as this will need to be adjusted. Did discuss that pain does have an impact on blood pressure, however should not impact blood pressure to this extent. Patient is receptive to this. Selina disclaimer Plan Detail Other Orders Orders: Referrals: Follow Up 1 month routine visit or sooner if needed Coding Level of Care Code Off vis,new,level 3 Diagnoses Strain of right hip S76.011A HTN (hypertension) I10 01/15/18 1415 <Electronically signed by Mike MEDEROS> Date Mike Nickerson NP-C Cosigner Signature: Date (if applicable) CC: XR HIP RIGHT W/PELVIS Observed: 01/13/2018 Status: F Source: [employer] 4 VIEWS 9:14 PM [facility] REPOSITORY ORIGINAL XR HIP RIGHT W/PELVIS 4 VIEWS, Clinical Statement: pain, right hip pain Comparison: 10/04/2017 Findings: No acute fracture, lytic process or periosteal reaction is seen in the visualized bones. No erosive changes or soft tissue calcification. There are degenerative changes in both hips without joint space narrowing. Symmetric SI joints. IMPRESSION: No acute skeletal abnormality. Interpreted By: Reno Steele MD Preliminary Report By: Reno Steele MD Electronically Signed By: Reno Steele MD Dictated Date: 01/13/2018 9:28:03 PM Prelim Date: 01/13/2018 9:28:03 PM Sign Date: 01/13/2018 9:28:31 PM ALLERGIES ALLERGIES DATE TYPE / CODE NAME / CODE REACTION SEVERITY SOURCE 09/03/2018 Drug Penicillins Other [facility] [place] Allergy/715933777(S /[id number] [facility]) (RXNORM) Hospital Repository 09/03/2018 Miscellaneous night quil Rash [facility] [place] Allergy/175320840([facility]) Hospital Repository 09/03/2018 Drug acetaminoph Rash [facility] [place] Allergy/494190014(S en/[id number] [facility]) (RXNORM) Hospital Repository 09/03/2018 Drug pseudoephed Rash [place] Allergy/280427382(S rine/N62356 Counts include 234 beds at the [facility] CT) 1831([facility] ) Repository 09/03/2018 Drug dextrometho Rash [place] Allergy/582310519(S [place]phan/F0060 [facility] [place] [address]([facility]) Repository 09/03/2018 Drug doxylamine/ Rash [place] Allergy/151143522(S [id number]( [facility]) [facility] Hospital Repository ENCOUNTERS ENCOUNTERS ADMIT/DISCHARGE ACCOUNT NUMBER ADMITTING ENCOUNTER LOCATION SOURCE CLASS 09/26/2018 [id number] [facility] ding:RAD Repository 09/24/2018/09/24/20 [id number] Ambulatory BMSBuilding: [place] 18 BMS.[facility] Repository 09/20/2018 [id number] Ambulatory BBuilding:OP [facility] Repository 09/18/2018 [id number] Ambulatory BMSBuilding: [place] BMS.CF.[facility] Repository 09/18/2018/09/18/20 [id number] Ambulatory BMSBuilding: [place] 18 BMS.[facility] Repository 09/18/2018 [id number] [facility] ding:MTLAB Repository 09/18/2018 [id number] Ambulatory BMSBuilding: [place] [facility] Repository 09/03/2018/09/03/20 [id number] Ambulatory BMSBuilding: [place] 18 BMS.[facility] Repository 09/03/2018 [id number] Ambulatory BBuilding:OS [facility] Repository 09/03/2018 [id number] Ambulatory BBuilding:OP [facility] Repository 09/03/2018 [id number] Ambulatory BBuilding:OS [facility] Repository 09/01/2018/09/01/20 [id number] Emergency BBuilding:ER [address] Repository 08/14/2018 [id number] [facility] ding:MTLAB Repository 07/25/2018/08/21/20 [id number] Ambulatory [place] 18 [facility] Hospital ding:DC Repository 06/27/2018/07/21/20 [id number] Ambulatory [place] 18 [facility] Hospital ding:DC Repository 06/13/2018/06/13/20 [id number] Ambulatory BMSBuilding: [place] 18 BMS.[facility] Repository 06/12/2018 [id number] [facility] [place] [facility] Rep[facility] 06/05/2018 [id number] Ambulatory BMSBuilding: [place] BMS.[facility] Repository 06/04/2018 [id number] Ambulatory BMSBuilding: [place] BMS.[facility] Repository 05/16/2018/05/16/20 [id number] Ambulatory [place] [address] [place] [address] ding:[place] Repository 05/14/2018/05/14/20 [id number] Ambulatory BMSBuilding: [place] 18 BMS.[facility] Repository 05/01/2018/05/01/20 [id number] Ambulatory BMSBuilding: [place] 18 BMS.[facility] Repository 04/04/2018/04/20/20 [id number] Ambulatory [place] 18 [facility] ding:DC Repository 03/12/2018/03/12/20 [id number] Ambulatory BMSBuilding: [place] 18 BMS.[facility] Repository 03/12/2018 [id number] [facility] [place] [facility] ding:MT[facility] Repository 01/22/2018 [id number] Ambulatory BMSBuilding: [place] BMS.[facility] Hospital Repository 01/22/2018/01/23/20 [id number] Ambulatory [address] ding:[facility] Repository 01/18/2018 [id number] Ambulatory BBuilding: [facility] Repository 01/15/2018/01/16/20 [id number] Ambulatory BMSBuilding: [place] 18 BMS.[facility] Repository 01/13/2018/01/14/20 [id number] Emergency BBuilding:[facility] [address] Repository PAYERS PAYERS ENCOUNTER GUARANTOR PAYER SUBSCRIBER SOURCE 09/26/2018 R[facility]ID [facility] RASHID [place] [id number] FIRST Insurance:CIGNAPolicy FORTNERDOB: [place], [place] Number: [id number] Hospital 74[address]Qhp: 330 [id number] Repository [phone] () Date:8674-07-68CI [address], [place] [address]DG: 09/26/2018 Secondary NOT GIVENUNK [place] Insurance:SELF PAY [facility] Hospital Number: Effective Repository Date:2018-09-26 09/24/2018 RASHID Gresham [facility] RASHID Gresham [place] [id number] FIRST Insurance:CIGNAPolicy FORTNERDOB: [place] Number: [id number] Hospital 80[address]Jtj: 330 [id number] Repository [phone] () Date:5106-49-34MM [address]DQIHLLSBTKL, [place] [address]JJ: 09/24/2018 Secondary NOT GIVENUNK [place] Insurance:SELF PAY [facility] Number: Effective Repository Date:2018-09-20 09/20/2018 [facility] FORTNERDOB: Insurance:CIGNA of FORTNERDOB: [facility] Number: [id number] Repository [address] [place] [address], [id number] Date:2018-09-20 - [place] [address]Zbo: [address]~[facility] 6322-20-59Epqk [email or web address] Name:PERSONAL CARER Box (HP)Tel: [phone]) el: [phone]) [id number], [place] [phone] (MU) [phone]: [phone]) (HP) [phone] (WP) 09/18/2018 RASHID Gresham [facility] RASHID [place] [id number] FIRST Insurance:CIGNAPolicy FOR[place]NERDOB: [place] Number: [id number] Hospital [address]Boj: (330) [id number] Repository [phone] (HP) Date:8534-86-02GS [address] [address]GS: 09/18/2018 Secondary NOT GIVENUNK [place] Insurance:SELF PAY [facility] Number: Effective Repository Date:2018-09-18 09/18/2018 RASHID T Primary RASHID T [place] [id number] FIRST Insurance:CIGNAPolicy FORTNERDOB: [facility], [place] Number: [id number] Hospital [address]Xpd: (330) [id number] Repository [phone] () Date:6754-88-13HC [address] [address]KO: 09/18/2018 Secondary NOT GIVENUNK [place] Insurance:SELF PAY [facility] Number: Effective Repository Date:2018-08-29 09/18/2018 RASHID T Primary RASHID T [place] [id number] FIRST Insurance:CIGNAPolicy FORTNERDOB: [facility] [place] Number: [id number] Hospital 95[address]Ygd: (330) [id number] Repository [phone] () Date:3236-92-38FX [address] [address]88[address]UQ: 09/18/2018 Secondary NOT GIVENUNK [place] Insurance:SELF PAY [facility] Number: Effective Repository Date:2018-09-18 09/18/2018 RASHID T Primary RASHID T [place] [id number] FIRST Insurance:CIGNAPolicy FORTNERDOB: [facility] [place] Number: [id number] Hospital [address]Poq: (330) [id number] Repository [phone] () Date:8425-54-84BS [address]TRBTPHKRNFD, [place] [address]QL: 09/18/2018 Secondary NOT GIVENUNK [place] Insurance:SELF PAY [facility] Number: Effective Repository Date:2018-09-18 09/03/2018 [facility] [place] [id number] FIRST Insurance:CIGNAPoly FORTNERDOB: [facility], [place] Number: [id number] Hospital 56481Ulc: (330) [id number] Repository [phone] (HP) Date:4072-87-81YT [address]AQGTXDMAFNN, [place] [address]SH: 09/03/2018 Secondary NOT GIVENUNK [place] Insurance:SELF PAY [facility] Number: Effective Repository Date:2018-09-03 09/03/2018 [facility] MIPolicy Number: [id number] Repository [address] [place] [address], [id number] [address] [place] [address] Date:2018-09-03 - [place] [address]Mlb: 82069~[facility] [id number] [email or web address] Name:PERSONAL CARER Box (HP)Tel: (000) el: [phone]) [id number], [place] 000[address] (WP) [phone]: [phone]) (HP) [phone] (WP) 09/03/2018 [facility]:CIGNA of FORTNERDOB: [facility] [place]Policy Number: [id number] Repository [address] [place] [address], [id number] [address] [place] [address], [place] Date:2018-09-03 - [place] [address]Bkh: 03595~[facility] [id number] [email or web address] Name:PERSONAL CARER Box (HP)Tel: (000) el: [phone] [id number], [place] [address] (WP) [phone]: [phone]) (HP) [phone] (WP) 09/03/2018 [facility] FORTNERDOB: Insurance:[facility] FORTNERDOB: [facility] [place]Policy Number: [id number] Repository [address] [place] [address], [id number] [address] [place] [address] Date:2018-09-03 [place] [address]Isz: 483[address]~[facility] [id number] [email or web address] Name:PERSONAL CARER Box (HP)Tel: (000) el: [phone]) [phone], [place] 000-[address] (WP) [phone]: [phone]) (HP) [phone] (WP) 09/01/2018 [facility] Primary Insurance:[facility] FORTNERDOB: [place] [facility] FORTNERDOB: [facility] INSCOPolicy Number: [id number] Repository [address] [place] [address], [id number] [address] [place] [address] Date:2018-09-01 [place] [address]Kyq: 30742~[facility] [id number] [email or web address] Name:Kyara Vazquez (HP)Tel: (000) el: (330) [place], [place] 000[address] (WP) [phone] 32881JB: [phone] () [phone] (WP) 09/01/2018 Secondary [facility] Insurance:MEDICARE FORTNERDOB: [facility] PART B INSCOPolicy [id number] Repository Number: [address] [place] [address], [id number] [place] [address]Tjc: Date:2018-09-01 - 2537-47-53Fzqr (HP)Tel: (330) Name:[facility] [phone] (WP) Administrators LLCPO Cristi [address]152Iqzwqokqz, [place] [address]GO: 08/14/2018 [facility] Primary RASHID T [place] [id number] FIRST Insurance:CIGNAPolicy FOR[place]NERDOB: [place] Number: [id number] Hospital [address]Pea: (330) [id number] Repository [phone] () Date:8260-86-32ZS [address]QAVUATNNYXV, [place] [address]CM: 08/14/2018 Secondary NOT GIVENUNK [place] Insurance:SELF PAY [facility] Number: Effective Repository Date:2018-08-14 07/25/2018 RASHID Gresham Primary RASHID Gresham [place] [id number] FIRST Insurance:CIGNAPolicy [place]NERDOB: [place] Number: [id number] Hospital 232[address]Ypk: (330) [id number] Repository [phone] () Date:2016-93-82DU [address]CNBZEERUOLZ, [place] [address]AO: 07/25/2018 Secondary NOT GIVENUNK [place] Insurance:SELF PAY [facility] Number: Effective Repository Date:2018-07-22 06/27/2018 RASHID Gresham Primary RASHID Gresham [place] [id number] FIRST Insurance:CIGNAPolicy [place]NERDOB: [place] Number: [id number] Hospital 799[address]Bhm: (330) [id number] Repository [phone] () Date:4871-49-62FD [address]LTKLWDBHBRV, [place] [address]OI: 06/27/2018 Secondary NOT GIVENUNK [place] Insurance:SELF PAY [facility] Number: Effective Repository Date:2018-05-22 06/13/2018 RASHID T Primary RASHID Gresham [place] [id number] FIRST Insurance:CIGNAPolicy [place]NERDOB: [place] Number: [id number] Hospital 86[address]Bai: (330) [id number] Repository [phone] () Date:5795-15-28GJ [address]JMVPQGXKHTT, [place] [address]VQ: 06/13/2018 Secondary NOT GIVENUNK [place] Insurance:SELF PAY [facility] Number: Effective Repository Date:2018-06-13 06/12/2018 RASHID Gresham Primary RASHID Gresham [place] [id number] FIRST Insurance:CIGNAPolicy [place]NERDOB: [place] Number: [id number] Hospital 07[address]Wbm: (330) [id number] Repository [phone] () Date:7867-22-97XZ [address]GRMEWUMUKRV, [place] [address]PJ: 06/12/2018 Secondary NOT GIVENUNK [place] Insurance:SELF PAY [facility] Number: Effective Repository Date:2018-06-12 06/05/2018 RASHID Gresham [facility] RASHID Gresham [place] [id number] FIRST Insurance:CIGNAPolicy [place]NERDOB: [place] Number: [id number] Hospital 9[address]Mdq: (330) [id number] Repository [phone] () Date:6476-66-74SH [address]WLGLXROBIUU, [place] [address]TU: 06/05/2018 Secondary NOT GIVENUNK [place] Insurance:SELF PAY [facility] Number: Effective Repository Date:2018-06-05 06/04/2018 RASHID Gresham [facility] RASHID Gresham [place] [id number] FIRST Insurance:CIGNAPolicy [place]NERDOB: [place] Number: [id number] Hospital 647[address]Ryg: (330) [id number] Repository [phone] () Date:0104-83-45NN [address]GZBSHDAPKVS, [place] [address]RS: 06/04/2018 Secondary NOT GIVENUNK [place] Insurance:SELF PAY [facility] Number: Effective Repository Date:2018-06-04 05/16/2018 RASHID Gresham Primary RASHID Gresham [place] [id number] FIRST Insurance:CIGNAPolicy [place]NERDOB: [place] Number: [id number] Hospital 70[address]Ewt: (330) [id number] Repository [phone] (HP) Date:5409-62-38GL [address]WGZCBYWFMVE, [place] [address]BM: 05/16/2018 Secondary NOT GIVENUNK [place] Insurance:SELF PAY [facility] Number: Effective Repository Date:2018-04-21 05/14/2018 RASHID T Primary RASHID Gresham [place] [id number] FIRST Insurance:CIGNAPolicy [place]NERDOB: [place] Number: [id number] Hospital 74[address]Uve: (330) [id number] Repository [phone] (HP) Date:9068-73-29ME [address]WUPZQCSPYJX, [place] [address]RN: 05/14/2018 Secondary NOT GIVENUNK [place] Insurance:SELF PAY [facility] Number: Effective Repository Date:2018-05-14 05/01/2018 RASHID Gresham Primary RASHID Gresham [place] [id number] FIRST Insurance:CIGNAPolicy [place]NER[place]OB: [place] Number: [id number] Hospital [address]Jaq: (330) [id number] Repository [phone] () Date:4968-17-27CV [address]EOBSGFLSAZG, [place] [address]NB: 05/01/2018 Secondary NOT GIVENUNK [place] Insurance:SELF PAY [facility] Number: Effective Repository Date:2018-05-01 04/04/2018 RASHID Gresham Primary RASHID Gresham [place] [id number] FIRST Insurance:CIGNAPolicy [place]OB: [place] Number: [id number] Hospital [address]Sgm: (330) [id number] Repository [phone] () Date:2938-70-86RB [address]OYTCMWFFWUI, [place] [address]GD: 04/04/2018 Secondary NOT GIVENUNK [place] Insurance:SELF PAY [facility] Number: Effective Repository Date:2018-04-03 03/12/2018 RASHID T Primary RASHID Gresham [place] [id number] FIRST Insurance:CIGNAPolicy [place]OB: [place] Number: [id number] Hospital 02[address]Dwa: (072) [id number] Repository [phone] () Date:3799-10-05XS [address] [address]MP: 03/12/2018 Secondary NOT GIVENUNK [place] Insurance:SELF PAY [facility] Number: Effective Repository Date:2018-03-12 03/12/2018 [place] [id number] FIRST Insurance:CIGNAPolicy [place]NERDOB: [place] Number: [id number] Hospital 27[address]Jxd: (560) [id number] Repository [phone] () Date:4886-48-73MC [address]KMGVSBUKSEA, [place] [address]US: 03/12/2018 Secondary NOT GIVENUNK [place] Insurance:SELF PAY [facility] Number: Effective Repository Date:2018-03-12 01/22/2018 [place] [address] FIRST Insurance:CIGNAPolicy [place]NERDOB: [place] Number: [id number] Hospital 929[address]Bvx: 330 [id number] Repository [phone] () Date:5619-30-91AD [address]FCJTSGYNZGR, [place] [address]LQ: 01/22/2018 Secondary NOT GIVENUNK [place] Insurance:SELF PAY [facility] Number: Effective Repository Date:2018-01-22 01/22/2018 [facility]:CIGNA of FORTNERDOB: [facility] MIPolicy Number: [id number] Repository [address] [place] [address], [id number] [address] [place] [address] Date:2018-01-22 - [place] [address]Nmk: [id number]~ABDOUL [id number] [email or web address] Name: Box (HP)Tel: (000) el: (330) 849211MwgezrwuSAN [place]TON[place], [place] 000[address] (WP) [phone]: (800) (HP) [phone] (WP) 01/18/2018 [facility] Insurance:CIGNA of FORTNERDOB: [facility] OHPolicy Number: [id number] Repository [address] [place] [address], [id number] [address] [place] [address] Date:2018-01-18 - [place] [address]Gly: 00264~[facility] [id number] [email or web address] Name:PERSONAL CARER Box (HP)Tel: (000) el: [phone]) [phone] ANTONIO, [place] 000[address] (WP) [phone]: [phone]) (HP) [phone] (WP) 01/15/2018 [place] [address] FIRST [facility], Number: [id number] [address]Nnc: [id number] Repository Date:6841-26-81BX BOX (HP) 954749IYHIFLJZAES [place] [address]MW: 01/15/2018 Secondary NOT GIVENUNK [place] Insurance:SELF PAY [facility] Number: Effective Repository Date:2018-01-15 01/13/2018 [facility] Insurance:CIGNA of FORTNERDOB: [facility] [place]Policy Number: [id number] Repository [address] [place] [address], [id number] [address] [place] [address] Date:2018-01-13 - [place] [address]Kqn: 685[address]~[facility]ITAL[facility] [id number] [email or web address] Name:PERSONAL CARER Box (HP)Tel: (000) el: [phone]) [id number], [place] 000[address] (WP) [phone]: [phone] (HP) [phone] (WP)
== END ==
PROVIDERS: Family Provider Nurse Practitioner Family; PCP Nurse Practitioner Family; Referring Provider Nurse Practitioner Family; Visit Provider Nurse Practitioner Family
DX: Z01.818 Encounter for other preprocedural examination (principal); E11.9 Type 2 diabetes mellitus without complications; I10 Essential (primary) hypertension; E78.5 Hyperlipidemia, unspecified
CPT/HCPCS: 36415; 71046; 80048; 80061; 83036; 85025; 93005

== ENCOUNTER → 2018-09-26 10:15 | Outpatient (CLI) | payer OTHER, SELFPAY ==
[2018-09-24 08:47] VITALS: BMI 29.7
--- NOTE | 2018-09-26 10:34 | RAD_ITS ---
STUDY: X-RAY CHEST REASON FOR EXAM: Male, 63 years old. Questionable nodule. TECHNIQUE: PA and lateral views of the chest. COMPARISON: September 18, 2019. FINDINGS: Nipple markers were utilized Lungs well-expanded. There is a stable nodule in the right upper lobe. A questionable nodule at the left lung base correlates with the nipple marker. There is no demonstrated pleural abnormality. Normal size heart. Normal mediastinum and calista. Normal visualized pulmonary arteries. Normal visualized aortic arch and descending thoracic aorta. There are diffuse degenerative changes of the visualized thoracic spine. There is degenerative osteoarthritis of the bilateral shoulders. There is no demonstrated abnormality of the visualized soft tissue structures of the upper abdomen. RAD/Chest 2 V w/ Apical/Lordotic IMPRESSION: 1. Old granulomatous disease without acute cardiopulmonary process or interval change. 2. The questionable nodule in the left lung base on the prior study correlates with the patient's left nipple. Electronically Signed: Ino Larios DO at 21:06 EST Tel [phone], Service support ,
== END ==
PROVIDERS: Family Provider Family Medicine; PCP Family Medicine; Referring Provider Nurse Practitioner Family; Visit Provider Nurse Practitioner Family
DX: R93.89 Abnormal findings on diagnostic imaging of other specified body structures (principal)
CPT/HCPCS: 71047

== ENCOUNTER → 2018-11-05 14:37 | Outpatient (CLI) | payer OTHER, SELFPAY ==
[2018-10-23 08:28] VITALS: BMI 29.7
[2018-11-05 18:22] LABS: Anion Gap 9 (5-15); BUN 21 mg/dL (7-18); BUN/Creat Ratio 18.9 RATIO (10-20); Calcium,Total 8.6 mg/dL (8.5-10.1); Chloride 103 mmol/L (98-107); Creatinine, Serum 1.11 mg/dL (0.70-1.30); EST Glomerular Filtration Rate 71 mL/min (>60); Est Glom Filt Rate - Afr Amer 85 mL/min (>60); Glucose 207 mg/dL (74-106); Potassium 3.9 mmol/L (3.5-5.1); Sodium Level 138 mmol/L (136-145)
== END ==
PROVIDERS: Family Provider Family Medicine; PCP Family Medicine; Referring Provider Nurse Practitioner Family; Visit Provider Nurse Practitioner Family
DX: I10 Essential (primary) hypertension (principal)
CPT/HCPCS: 36415; 80048

== ENCOUNTER → 2019-03-03 08:11 | Outpatient (CLI) | payer OTHER, MEDICARE, SELFPAY ==
[2019-02-11 11:31] VITALS: BMI 29.7
--- NOTE | 2019-03-03 08:30 | RAD_ITS ---
PROCEDURE: Fluoroscopic guided Hip Injection DATE: March 03, 2019. INDICATION: Male, 63 years old. Chronic right hip pain. PHYSICIAN: Aram Lubin M.D. MEDICATIONS: 6 mg of betamethasone and 3 cc of 1% lidocaine. 2% lidocaine administered subcutaneously for local anesthesia. ACCESS SITE: Right hip. NEEDLE: 22-gauge spinal needle. FLUOROSCOPY TIME (if supplied): (0:33) minutes/seconds FINDINGS: The risks, benefits, and alternatives to the procedure were explained to the patient. The specific risks of bleeding, infection, and neurovascular injury were detailed and accepted. Witnessed informed consent was obtained. A 22-gauge spinal needle was positioned under radiographic fluoroscopic localization. Approximately 2 cc of Isovue-300 instilled for localization purposes. Medication was then injected. The patient tolerated the procedure well without any immediate complications. RAD/Inj/Asp Tobin Jt Should/Hip/Knee IMPRESSION: 1. Successful fluoroscopic guided hip injection. Electronically Signed: Aram Lubin, at 10:27 EDT , Service support ,
== END ==
PROVIDERS: Family Provider Family Medicine; PCP Family Medicine; Referring Provider Specialist; Visit Provider Specialist
DX: M16.11 Unilateral primary osteoarthritis, right hip (principal)
CPT/HCPCS: 20610; 77002; Q9967; J0702

== ENCOUNTER → 2019-03-25 | Outpatient (CLI) | payer OTHER, MEDICARE, SELFPAY ==
[2019-03-25 08:28] VITALS: BMI 30.5
--- NOTE | 2019-03-25 09:24 | EKG12_ITS ---
Test Reason : PRE OP Blood Pressure : / mmHG Vent. Rate : 078 BPM Atrial Rate : 078 BPM P-R Int : 156 ms QRS Dur : 080 ms QT Int : 380 ms P-R-T Axes : 077 049 027 degrees QTc Int : 433 ms Normal sinus rhythm Normal ECG Confirmed by ANN GARCIA, MIKE ([id number]), editorial clerk MARCO ANTONIO HAYES ([id number]) on 03/25/2019 10:14:33 AM Referred By: Mike Nickerson Confirmed By:MIKE JUAREZ MD
[2019-03-25 12:20] LABS: Hematocrit 50.9 % (40-54); Hemoglobin 16.8 g/dl (13.0-16.5); Mean Corpuscular Hgb 30.1 pg (27.0-32.0); Mean Corpuscular Volume 91.1 fL (80-94); Mean Platelet Vol. 10.8 fl (6.2-12.0); Platelet Count 253 K/mm3 (150-450); RBC Distribution Width CV 13.8 % (11.6-14.6); RBC Distribution Width SD 45.7 fl (35.1-43.9); Red Blood Count 5.59 M/mm3 (4.6-6.2); White Blood Count 8.2 K/mm3 (4.4-11.0)
[2019-03-25 12:22] LABS: Scan Indicated on CBC? Y/N NO
[2019-03-25 12:48] LABS: ALB/GLOB Ratio 1.3 RATIO (0.9-2.4); AST(SGOT) 11 U/L (15-37); Alanine Aminotransfer ALT/SGPT 26 U/L (16-61); Albumin, Serum 4.1 g/dL (3.2-5.0); Alkaline Phosphatase 96 U/L (45-117); Anion Gap 6 (5-15); BUN 19 mg/dL (7-18); BUN/Creat Ratio 20.5 RATIO (10-20); Calcium,Total 9.6 mg/dL (8.5-10.1); Chloride 103 mmol/L (98-107); Creatinine, Serum 0.93 mg/dL (0.70-1.30); EST Glomerular Filtration Rate 87 mL/min (>60); Est Glom Filt Rate - Afr Amer 105 mL/min (>60); Globulin 3.1 g/dL (2.2-4.2); Glucose 172 mg/dL (74-106); Potassium 4.6 mmol/L (3.5-5.1); Protein, Total 7.2 g/dL (6.4-8.2); Sodium Level 139 mmol/L (136-145); Thyroid Stim Hormone (TSH) 1.86 uIU/mL (0.358-3.74)
== END | disposition home or self-care (01) ==
PROVIDERS: Family Provider Family Medicine; PCP Family Medicine; Referring Provider Nurse Practitioner Family; Visit Provider Nurse Practitioner Family
DX: Z01.818 Encounter for other preprocedural examination (principal)
CPT/HCPCS: 36415; 80053; 84443; 85027; 93005

== ENCOUNTER → 2020-07-09 | Outpatient (CLI) | payer MEDICARE, SELFPAY ==
[2020-07-01 10:14] VITALS: BMI 28.0
[2020-07-09 11:15] LABS: Mucous, Urine 0 SEEN /hpf (<or=2+); Red Blood Cells-Urine 0 SEEN /hpf (0-5); Squamous Epithelial Cells - UA 0 SEEN /hpf (0-5)
[2020-07-09 11:54] LABS: Color, Urine Yellow (Yellow); Glucose, Dipstick 50 mg/dl (Normal); Ketone-Dipstick Negative (Negative); Leukocyte Esterase-Dipstick 500 /ul (Negative); Nitrite-Dipstick Negative (Negative); Occult Blood-Urine 250 /ul (Negative); Protein-Dipstick 15 mg/dl (Negative); Specific Gravity, Urine 1.015 (1.002-1.030); Urine Bilirubin Dipstick Negative (Negative); Urine Clarity Sl. Cloudy (Clear); Urine Urobilinogen 4 mg/dl (Normal)
[2020-07-09 12:14] LABS: Bacteria 3+ /hpf (None Seen); White Blood Cells >100 SEEN /hpf (0-5)
== END | disposition home or self-care (01) ==
PROVIDERS: PCP Family Medicine; Referring Provider Nurse Practitioner Family; Visit Provider Nurse Practitioner Family
DX: R30.0 Dysuria (principal)
CPT/HCPCS: 81001; 87077; 87086; 87088; 87186

== ENCOUNTER → 2020-09-30 10:53 | Outpatient (CLI) | payer MEDICARE, SELFPAY ==
[2020-09-30 10:21] VITALS: BMI 29.2
[2020-09-30 12:34] LABS: ALB/GLOB Ratio 1.2 RATIO (0.9-2.4); AST(SGOT) 7 U/L (15-37); Alanine Aminotransfer ALT/SGPT 19 U/L (16-61); Albumin, Serum 3.8 g/dL (3.2-5.0); Alkaline Phosphatase 91 U/L (45-117); Anion Gap 7 (5-15); BUN 23 mg/dL (7-18); BUN/Creat Ratio 17.6 RATIO (10-20); Calcium,Total 8.6 mg/dL (8.5-10.1); Chloride 108 mmol/L (98-107); Cholesterol 99 mg/dL (200); Creatinine, Serum 1.31 mg/dL (0.70-1.30); EST Glomerular Filtration Rate 58 mL/min (>60); Est Glom Filt Rate - Afr Amer 70 mL/min (>60); Globulin 3.1 g/dL (2.2-4.2); Glucose 137 mg/dL (74-106); High Density Lipoprotein 42 mg/dL; Potassium 3.8 mmol/L (3.5-5.1); Protein, Total 6.9 g/dL (6.4-8.2); Sodium Level 142 mmol/L (136-145); Triglycerides 79 mg/dL; Very Low Density Lipoprotein 16 mg/dL (5-40)
== END ==
PROVIDERS: PCP Family Medicine; Referring Provider Family Medicine; Visit Provider Family Medicine
DX: E78.5 Hyperlipidemia, unspecified (principal); I69.319 Unspecified symptoms and signs involving cognitive functions following cerebral infarction
CPT/HCPCS: 36415; 80053; 80061; 81001

== ENCOUNTER → 2020-10-04 09:22 | Outpatient (CLI) | payer MEDICARE, SELFPAY ==
[2020-09-30 10:21] VITALS: BMI 29.2
[2020-10-04 09:25] LABS: Mucous, Urine 0 SEEN /hpf (<or=2+)
[2020-10-04 12:23] LABS: Color, Urine Yellow (Yellow); Glucose, Dipstick Normal (Normal); Ketone-Dipstick Negative (Negative); Leukocyte Esterase-Dipstick 500 /ul (Negative); Nitrite-Dipstick Negative (Negative); Occult Blood-Urine 10 /ul (Negative); Protein-Dipstick 15 mg/dl (Negative); Specific Gravity, Urine 1.015 (1.002-1.030); Urine Bilirubin Dipstick Negative (Negative); Urine Clarity Sl. Cloudy (Clear); Urine Urobilinogen Normal (Normal)
[2020-10-04 12:29] LABS: Bacteria 2+ /hpf (None Seen); Red Blood Cells-Urine 0-5 SEEN /hpf (0-5); Squamous Epithelial Cells - UA 0-5 SEEN /hpf (0-5); White Blood Cells 25-50 SEEN /hpf (0-5)
== END ==
PROVIDERS: PCP Family Medicine; Referring Provider Family Medicine; Visit Provider Family Medicine
DX: N40.1 Benign prostatic hyperplasia with lower urinary tract symptoms (principal); R33.8 Other retention of urine
CPT/HCPCS: 81001

== ENCOUNTER → 2020-10-21 | Outpatient (CLI) | payer MEDICARE, SELFPAY | END | disposition home or self-care (01) | LOC: LABSPEC 14:59 | PROVIDERS: PCP Family Medicine; Referring Provider Nurse Practitioner Family; Visit Provider Nurse Practitioner Family | DX: U07.1 COVID-19 (principal) | CPT/HCPCS: 87635; U0003 ==

== ENCOUNTER → 2020-12-14 | Outpatient (CLI) | payer MEDICARE, SELFPAY ==
[2020-12-14 09:38] VITALS: BMI 30.5
[2020-12-14 10:17] LABS: Mucous, Urine 0 SEEN /hpf (<or=2+)
[2020-12-14 12:35] LABS: Color, Urine Yellow (Yellow); Glucose, Dipstick Normal (Normal); Ketone-Dipstick Negative (Negative); Leukocyte Esterase-Dipstick 500 /ul (Negative); Nitrite-Dipstick Positive (Negative); Occult Blood-Urine 25 /ul (Negative); Protein-Dipstick 30 mg/dl (Negative); Specific Gravity, Urine 1.015 (1.002-1.030); Urine Bilirubin Dipstick Negative (Negative); Urine Clarity Sl. Cloudy (Clear); Urine Urobilinogen Normal (Normal)
[2020-12-14 12:43] LABS: Bacteria 1+ /hpf (None Seen); Red Blood Cells-Urine 0-5 SEEN /hpf (0-5); Squamous Epithelial Cells - UA 0-5 SEEN /hpf (0-5); White Blood Cells 25-50 SEEN /hpf (0-5)
== END | disposition home or self-care (01) ==
LOC: LABSPEC 10:16
PROVIDERS: PCP Family Medicine; Referring Provider Family Medicine; Visit Provider Family Medicine
DX: R33.9 Retention of urine, unspecified (principal)
CPT/HCPCS: 81001; 87077; 87086; 87088; 87186

== ENCOUNTER → 2021-01-21 11:12 | Outpatient (CLI) | payer MEDICARE, SELFPAY ==
[2021-01-20 15:02] VITALS: BMI 31.1
[2021-01-21 11:14] LABS: Bacteria 0 SEEN /hpf (None Seen); Mucous, Urine 0 SEEN /hpf (<or=2+); Red Blood Cells-Urine 0 SEEN /hpf (0-5); Squamous Epithelial Cells - UA 0 SEEN /hpf (0-5); White Blood Cells 0 SEEN /hpf (0-5)
[2021-01-21 12:09] LABS: Color, Urine Yellow (Yellow); Glucose, Dipstick Normal (Normal); Ketone-Dipstick Negative (Negative); Leukocyte Esterase-Dipstick Negative /ul (Negative); Nitrite-Dipstick Negative (Negative); Occult Blood-Urine Negative /ul (Negative); Protein-Dipstick Negative (Negative); Specific Gravity, Urine 1.005 (1.002-1.030); Urine Bilirubin Dipstick Negative (Negative); Urine Clarity Clear (Clear); Urine Urobilinogen Normal (Normal)
== END ==
PROVIDERS: PCP Family Medicine; Referring Provider Family Medicine; Visit Provider Family Medicine
DX: R33.9 Retention of urine, unspecified (principal)
CPT/HCPCS: 81001

== ENCOUNTER → 2021-07-20 | Outpatient (CLI) | payer MEDICARE, SELFPAY ==
[2021-07-20 14:19] LABS: Mucous, Urine 0 SEEN /hpf (<or=2+); Red Blood Cells-Urine 0 SEEN /hpf (0-5); Squamous Epithelial Cells - UA 0 SEEN /hpf (0-5)
[2021-07-20 15:09] LABS: Color, Urine Yellow (Yellow); Glucose, Dipstick Normal (Normal); Ketone-Dipstick Negative (Negative); Leukocyte Esterase-Dipstick 500 /ul (Negative); Nitrite-Dipstick Negative (Negative); Occult Blood-Urine 25 /ul (Negative); Protein-Dipstick 30 mg/dl (Negative); Specific Gravity, Urine 1.015 (1.002-1.030); Urine Bilirubin Dipstick Negative (Negative); Urine Clarity Sl. Cloudy (Clear); Urine Urobilinogen Normal (Normal)
[2021-07-20 15:17] LABS: Bacteria 2+ /hpf (None Seen); White Blood Cells >100 SEEN /hpf (0-5)
== END | disposition home or self-care (01) ==
LOC: LABSPEC 14:07
PROVIDERS: PCP Family Medicine; Referring Provider Family Medicine; Visit Provider Family Medicine
DX: R33.9 Retention of urine, unspecified (principal)
CPT/HCPCS: 81001

== ENCOUNTER 2021-12-08 10:34 | Outpatient (CLI) | payer MEDICARE, SELFPAY ==
[2021-12-08 10:36] LABS: Mucous, Urine 0 SEEN /hpf (<or=2+); Red Blood Cells-Urine 0 SEEN /hpf (0-5); Squamous Epithelial Cells - UA 0 SEEN /hpf (0-5)
[2021-12-08 12:04] LABS: Absolute Lymphocyte Count 2.68 X10^3/uL (0.83-4.51); Absolute Neutrophil Count 7.5 X10^3/uL (2.0-7.7); Basophil# 0.07 X10^3/uL; Basophil% 0.6 % (0-1); Eosinophil# 0.23 X10^3/uL; Hematocrit 43.9 % (40-54); Hemoglobin 14.4 g/dL (13.0-16.5); Lymphocyte # 2.68 X10^3/ul (0.83-4.51); Lymphocyte % 23.5 % (19-41); Mean Corp Hgb Conc 32.8 g/dL (32-36); Mean Corpuscular Volume 94.6 fL (80-94); Mean Platelet Vol. 10.7 fl (6.2-12.0); Monocyte# 0.89 X10^3/uL; Monocyte% 7.8 % (0-10); NRBC Flagged by Analyzer 0 % (0-5); Neutrophil % 65.7 % (47-70); Platelet Count 278 K/mm3 (150-450); RBC Distribution Width SD 48.4 fl (35.1-43.9); Red Blood Count 4.64 M/mm3 (4.6-6.2); White Blood Count 11.4 K/mm3 (4.4-11.0)
[2021-12-08 12:05] LABS: Color, Urine Yellow (Yellow); Glucose, Dipstick Normal (Normal); Ketone-Dipstick 5 mg/dl (Negative); Leukocyte Esterase-Dipstick 500 /ul (Negative); Nitrite-Dipstick Positive (Negative); Occult Blood-Urine 25 /ul (Negative); Protein-Dipstick 15 mg/dl (Negative); Urine Bilirubin Dipstick Negative (Negative); Urine Clarity Sl. Cloudy (Clear); Urine Urobilinogen 1 mg/dl (Normal)
[2021-12-08 12:27] LABS: ALB/GLOB Ratio 1.2 RATIO (0.9-2.4); AST(SGOT) 10 U/L (15-37); Alanine Aminotransfer ALT/SGPT 17 U/L (16-61); Albumin, Serum 3.8 g/dL (3.2-5.0); Alkaline Phosphatase 92 U/L (45-117); Anion Gap 5 (5-15); BUN 24 mg/dL (7-18); BUN/Creat Ratio 19.7 RATIO (10-20); Calcium,Total 8.8 mg/dL (8.5-10.1); Chloride 107 mmol/L (98-107); Cholesterol 105 mg/dL (200); Creatinine, Serum 1.22 mg/dL (0.70-1.30); EST Glomerular Filtration Rate 63 mL/min (>60); Est Glom Filt Rate - Afr Amer 76 mL/min (>60); Globulin 3.2 g/dL (2.2-4.2); Glucose 136 mg/dL (74-106); High Density Lipoprotein 49 mg/dL; Potassium 4.3 mmol/L (3.5-5.1); Sodium Level 140 mmol/L (136-145); Thyroid Stim Hormone (TSH) 1.71 uIU/mL (0.358-3.74); Triglycerides 75 mg/dL; Very Low Density Lipoprotein 15 mg/dL (5-40)
[2021-12-08 12:31] LABS: Bacteria 2+ /hpf (None Seen); White Blood Cells 25-50 SEEN /hpf (0-5)
== END 2021-12-08 23:59 | disposition home or self-care (01) ==
PROVIDERS: PCP Family Medicine; Referring Provider Nurse Practitioner Family; Visit Provider Nurse Practitioner Family
DX: R30.0 Dysuria (principal); E11.9 Type 2 diabetes mellitus without complications; I10 Essential (primary) hypertension; E78.5 Hyperlipidemia, unspecified; N30.00 Acute cystitis without hematuria
CPT/HCPCS: 36415; 80053; 80061; 81001; 84443; 85025; 87077; 87086; 87088; 87186

== ENCOUNTER → 2022-05-26 | Outpatient (CLI) | payer MEDICARE, SELFPAY ==
[2022-05-26 09:43] LABS: Mucous, Urine 0 SEEN /hpf (<or=2+); Red Blood Cells-Urine 0 SEEN /hpf (0-5); Squamous Epithelial Cells - UA 0 SEEN /hpf (0-5)
[2022-05-26 12:14] LABS: Color, Urine Yellow (Yellow); Glucose, Dipstick Normal (Normal); Ketone-Dipstick 5 mg/dl (Negative); Leukocyte Esterase-Dipstick 500 /ul (Negative); Nitrite-Dipstick Negative (Negative); Occult Blood-Urine 50 /ul (Negative); Protein-Dipstick 30 mg/dl (Negative); Specific Gravity, Urine 1.025 (1.002-1.030); Urine Bilirubin Dipstick Negative (Negative); Urine Clarity Turbid (Clear); Urine Urobilinogen Normal (Normal)
[2022-05-26 12:35] LABS: White Blood Cells >100 SEEN /hpf (0-5)
[2022-05-26 12:38] LABS: Bacteria 4+ /hpf (None Seen)
== END | disposition home or self-care (01) ==
LOC: LABSPEC 09:42
PROVIDERS: PCP Family Medicine; Referring Provider Nurse Practitioner Family; Visit Provider Nurse Practitioner Family
DX: R30.0 Dysuria (principal); R33.9 Retention of urine, unspecified
CPT/HCPCS: 81001; 87077; 87086; 87088; 87186

== ENCOUNTER → 2022-10-20 | Outpatient (CLI) | payer MEDICARE, SELFPAY ==
[2022-10-20 13:44] LABS: Mucous, Urine 0 SEEN /hpf (<or=2+); Red Blood Cells-Urine 0 SEEN /hpf (0-5); Squamous Epithelial Cells - UA 0 SEEN /hpf (0-5)
[2022-10-20 15:34] LABS: Color, Urine Yellow (Yellow); Glucose, Dipstick 1000 mg/dl (Normal); Ketone-Dipstick Negative (Negative); Leukocyte Esterase-Dipstick 100 /ul (Negative); Nitrite-Dipstick Negative (Negative); Occult Blood-Urine 10 /ul (Negative); Protein-Dipstick 15 mg/dl (Negative); Urine Bilirubin Dipstick Negative (Negative); Urine Clarity Clear (Clear); Urine Urobilinogen Normal (Normal)
[2022-10-20 15:46] LABS: Bacteria 2+ /hpf (None Seen); White Blood Cells 5-10 SEEN /hpf (0-5)
== END | disposition home or self-care (01) ==
LOC: LABSPEC 13:43
PROVIDERS: PCP Family Medicine; Referring Provider Physician Assistant; Visit Provider Physician Assistant
DX: R30.0 Dysuria (principal); R33.9 Retention of urine, unspecified
CPT/HCPCS: 81001; 87077; 87086; 87088; 87186

== ENCOUNTER → 2022-12-14 | Outpatient (CLI) | payer MEDICARE, SELFPAY ==
[2022-12-14 12:33] LABS: ALB/GLOB Ratio 1.1 RATIO (0.9-2.4); AST(SGOT) 7 U/L (15-37); Alanine Aminotransfer ALT/SGPT 14 U/L (16-61); Albumin, Serum 3.5 g/dL (3.2-5.0); Alkaline Phosphatase 92 U/L (45-117); Anion Gap 5 (5-15); BUN 27 mg/dL (7-18); BUN/Creat Ratio 23.3 RATIO (10-20); Calcium,Total 9.1 mg/dL (8.5-10.1); Chloride 110 mmol/L (98-107); Creatinine, Serum 1.16 mg/dL (0.70-1.30); EST Glomerular Filtration Rate 66 mL/min (>60); Est Glom Filt Rate - Afr Amer 80 mL/min (>60); Globulin 3.1 g/dL (2.2-4.2); Glucose 191 mg/dL (74-106); Potassium 4.2 mmol/L (3.5-5.1); Protein, Total 6.6 g/dL (6.4-8.2); Sodium Level 143 mmol/L (136-145)
[2022-12-14 12:49] LABS: Absolute Lymphocyte Count 1.85 X10^3/uL (0.83-4.51); Absolute Neutrophil Count 5.7 X10^3/uL (2.0-7.7); Basophil# 0.05 X10^3/uL; Basophil% 0.6 % (0-1); Eosinophil# 0.16 X10^3/uL; Eosinophils% 1.9 % (0-5); Hematocrit 43.3 % (40-54); Hemoglobin 13.8 g/dL (13.0-16.5); Lymphocyte # 1.85 X10^3/ul (0.83-4.51); Lymphocyte % 22.4 % (19-41); Mean Corp Hgb Conc 31.9 g/dL (32-36); Mean Corpuscular Hgb 30.1 pg (27.0-32.0); Mean Corpuscular Volume 94.5 fL (80-94); Mean Platelet Vol. 11.1 fl (6.2-12.0); Monocyte# 0.52 X10^3/uL; Monocyte% 6.3 % (0-10); NRBC Flagged by Analyzer 0 % (0-5); Neutrophil # 5.66 X10^3/uL (2.7-7.7); Neutrophil % 68.6 % (47-70); Platelet Count 256 K/mm3 (150-450); RBC Distribution Width CV 13.9 % (11.6-14.6); RBC Distribution Width SD 48.1 fl (35.1-43.9); Red Blood Count 4.58 M/mm3 (4.6-6.2); White Blood Count 8.3 K/mm3 (4.4-11.0)
== END | disposition home or self-care (01) ==
LOC: BIMLAB 09:55
PROVIDERS: PCP Family Medicine; Referring Provider Family Medicine; Visit Provider Family Medicine
DX: I10 Essential (primary) hypertension (principal)
CPT/HCPCS: 36415; 80053; 85025

== ENCOUNTER → 2024-02-19 | Outpatient (CLI) | payer MEDICARE, SELFPAY ==
[2024-02-19 10:58] LABS: Mucous, Urine 0 SEEN /hpf (<or=2+); Red Blood Cells-Urine 0 SEEN /hpf (0-5)
[2024-02-19 12:26] LABS: Color, Urine Yellow (Yellow); Glucose, Dipstick Normal (Normal); Ketone-Dipstick Negative (Negative); Leukocyte Esterase-Dipstick 500 /ul (Negative); Nitrite-Dipstick Negative (Negative); Occult Blood-Urine 10 /ul (Negative); Protein-Dipstick 15 mg/dl (Negative); Specific Gravity, Urine 1.015 (1.002-1.030); Urine Bilirubin Dipstick Negative (Negative); Urine Clarity Cloudy (Clear); Urine Urobilinogen Normal (Normal); Urine pH 6.5 (5.0 - 8.0)
[2024-02-19 12:38] LABS: Bacteria 4+ /hpf (None Seen); Squamous Epithelial Cells - UA 0-5 SEEN /hpf (0-5); White Blood Cells 50-100 SEEN /hpf (0-5)
[2024-02-19 13:57] LABS: Hemoglobin A1c 8.6 % (3.8-5.6)
== END | disposition home or self-care (01) ==
LOC: BIMLAB 10:56
PROVIDERS: PCP Family Medicine; Visit Provider Family Medicine
DX: E11.9 Type 2 diabetes mellitus without complications (principal); R33.9 Retention of urine, unspecified
CPT/HCPCS: 36415; 81001; 83036

== ENCOUNTER → 2024-04-03 | Outpatient (CLI) | payer MEDICARE, SELFPAY ==
[2024-04-03 11:08] LABS: Mucous, Urine 0 SEEN /hpf (<or=2+); Squamous Epithelial Cells - UA 0 SEEN /hpf (0-5)
[2024-04-03 12:26] LABS: Glucose, Dipstick 100 mg/dl (Normal); Ketone-Dipstick Negative (Negative); Leukocyte Esterase-Dipstick 500 /ul (Negative); Nitrite-Dipstick Negative (Negative); Occult Blood-Urine 10 /ul (Negative); Protein-Dipstick 30 mg/dl (Negative); Urine Bilirubin Dipstick Negative (Negative); Urine Urobilinogen 1 mg/dl (Normal)
[2024-04-03 12:27] LABS: Absolute Lymphocyte Count 2.38 X10^3/uL (0.83-4.51); Absolute Neutrophil Count 5.2 X10^3/uL (2.0-7.7); Basophil# 0.06 X10^3/uL; Basophil% 0.7 % (0-1); Eosinophil# 0.21 X10^3/uL; Eosinophils% 2.5 % (0-5); Hematocrit 45.1 % (40-54); Hemoglobin 14.6 g/dL (13.0-16.5); Lymphocyte # 2.38 X10^3/ul (0.83-4.51); Lymphocyte % 27.8 % (19-41); Mean Corp Hgb Conc 32.4 g/dL (32-36); Mean Corpuscular Volume 95.8 fL (80-94); Mean Platelet Vol. 10.8 fl (6.2-12.0); Monocyte# 0.64 X10^3/uL; Monocyte% 7.5 % (0-10); NRBC Flagged by Analyzer 0 % (0-5); Neutrophil # 5.23 X10^3/uL (2.7-7.7); Platelet Count 252 K/mm3 (150-450); RBC Distribution Width CV 14.4 % (11.6-14.6); Red Blood Count 4.71 M/mm3 (4.6-6.2); White Blood Count 8.6 K/mm3 (4.4-11.0)
[2024-04-03 12:35] LABS: Color, Urine Yellow (Yellow); Urine Clarity Clear (Clear)
[2024-04-03 12:39] LABS: Red Blood Cells-Urine 0-5 SEEN /hpf (0-5); White Blood Cells 50-100 SEEN /hpf (0-5)
[2024-04-03 12:40] LABS: Bacteria 4+ /hpf (None Seen)
[2024-04-03 12:49] LABS: Valproic Acid (Depakene) Level < 3 ug/mL (50-100)
[2024-04-03 12:51] LABS: Vitamin B12 326 pg/mL (211-911)
[2024-04-03 12:57] LABS: ALB/GLOB Ratio 1.1 RATIO (0.9-2.4); AST(SGOT) 16 U/L (15-37); Alanine Aminotransfer ALT/SGPT 20 U/L (16-61); Albumin, Serum 3.8 g/dL (3.2-5.0); Alkaline Phosphatase 104 U/L (45-117); Anion Gap 5 (5-15); BUN 29 mg/dL (7-18); BUN/Creat Ratio 25.2 RATIO (10-20); Calcium,Total 9.4 mg/dL (8.5-10.1); Chloride 105 mmol/L (98-107); Creatinine, Serum 1.15 mg/dL (0.70-1.30); EST Glomerular Filtration Rate 67 mL/min (>60); Est Glom Filt Rate - Afr Amer 81 mL/min (>60); Globulin 3.5 g/dL (2.2-4.2); Glucose 197 mg/dL (74-106); Potassium 4.4 mmol/L (3.5-5.1); Protein, Total 7.3 g/dL (6.4-8.2); Sodium Level 139 mmol/L (136-145)
== END | disposition home or self-care (01) ==
LOC: BIMLAB 10:54
PROVIDERS: PCP Family Medicine; Referring Provider Nurse Practitioner; Visit Provider Nurse Practitioner
DX: F41.9 Anxiety disorder, unspecified (principal); R30.0 Dysuria
CPT/HCPCS: 36415; 80053; 80164; 81001; 82607; 85025; 87077; 87086; 87088; 87186

== ENCOUNTER 2024-11-15 13:55 | Emergency (ER) | payer MEDICARE, SELFPAY ==
[2024-11-15 13:57] VITALS: BP 104/91; PULSE 97; RESP 16; TEMP 36.8; O2SAT 98; BMI 31.0
--- NOTE | 2024-11-15 14:15 | EDS_ITS ---
<Statement entered by Desmond Parks DO - 11/18/24 17:05> Patient was seen and examined with physician higher level teaching assistant Roseline All components of the history and physical confirmed and agreed. History of present illness and physical exam: Patient is a 69-year-old male with a past medical history of hypertension, type 2 diabetes, CVA who presents to the emergency department with a chief complaint of decreased hearing out of the left side. He states that he went to urgent care had it flushed a week ago return there again today and noted that they flushed it again and had yellow drainage coming from the ear. Patient has other no other complaints at this point time. Review of systems: Agree with above Physical exam: Rhythm above will add on no concern for mastoiditis at this point time no concern for malignant otitis externa MDM Patient is a 69-year-old male who presented to the emergency department with a chief complaint of drainage out of his left ear after having his ear flushed about a week ago and again today. On the differential diagnosis includes but not limited to otitis externa, malignant otitis externa, otitis media. Once workup is obtained reviewed he will be reevaluated. Patient CBC was significant for leukocytosis of 10,000, hemoglobin is 14.3, platelet count was noted be 407. Patient sodium was 134, potassium normal at 4.3, creatinine was elevated 1.51. Patient's glucose was noted be 523 he was given subcutaneous insulin as well as IV fluids. Patient states that he has not been taking his Trulicity as prescribed as he notes that there is issue with the mail pharmacy he has only been on metformin 1000 mg once a day per his doctors prescribing recommendations. Patient was given IV ciprofloxacin. At this point time we do not have ears nose and throat coverage at [place] therefore patient will require transfer patient states that he only wants to go to either [facility] or [facility] in [place]. Please reach out to [facility] and they do not have beds available. Reach out to [facility] who will accept the patient for transfer Dr. Harrison. Patient was notified is agreeable this plan all question concerns answered bedside. Plan: Final impression: Otitis externa Hyperglycemia History of diabetes Disposition: Patient will be transferred to [facility] in stable condition Supervising attending attestation: Desmond Parks D.O. [facility] History of Present Illness Chief Complaint: Ear Problem Narrative Narrative: 69-year-old male had decreased left-sided hearing and went to urgent care and had it flushed a week ago. He went back today and they flushed it again and after that he has had yellow drainage. He has no fever or chills. [facility] Medical History Dysuria Chronic low back pain Acute cystitis Stroke Right leg pain Hyperlipidemia Hypertension Type 2 diabetes mellitus Home Medications ?Medication ?Instructions ?Recorded ?Last Taken ?Type aspirin 81 mg tablet,delayed 81 mg PO DAILY 07/01/20 Unknown History release (Adult Low Dose Aspirin) blood sugar diagnostic #50 ea 05/26/22 Unknown Rx pen needle, diabetic 29 gauge x #30 ea 05/26/22 Unknown Rx 1/2 (Ultra-Thin II Insulin Pen Iroquois) blood sugar diagnostic (Blood #10 ea 11/23/22 Unknown Rx Glucose Test strips) blood-glucose meter #1 ea 11/23/22 Unknown Rx lancets 32 gauge #100 ea 11/23/22 Unknown Rx blood glucose control, low (True #1 ea 11/30/22 Unknown Rx Metrix Level 1 solution) metformin 1,000 mg tablet 1,000 mg PO DAILY #90 tabs 01/10/23 Unknown Rx memantine 5 mg tablet 5 mg PO QAM #90 tabs 02/07/23 Unknown Rx atorvastatin 80 mg tablet See Rx Instructions .Route 03/14/23 Unknown Rx .COMPLEX #90 tabs lisinopril 5 mg tablet See Rx Instructions .Route 03/14/23 Unknown Rx .COMPLEX #90 tabs blood sugar diagnostic (Accu-Chek #100 ea 06/21/23 Unknown Rx Clarissa Plus test strips) blood-glucose meter (Accu-Chek #1 ea 06/21/23 Unknown Rx Clarissa Plus Meter) amlodipine 10 mg tablet 10 mg PO QDAY #90 tabs 09/20/23 Unknown Rx glipizide 5 mg tablet, extended 5 mg PO DAILY #90 tabs 12/25/23 Unknown Rx release 24 hr divalproex 125 mg capsule,delayed 125 mg PO .COMPLEX #30 caps 02/19/24 Unknown Rx release sprinkle paroxetine HCl 20 mg tablet See Rx Instructions .Route 04/02/24 Unknown Rx .COMPLEX #90 tabs finasteride 5 mg tablet See Rx Instructions .Route 04/03/24 Unknown Rx .COMPLEX #90 tabs nitroglycerin 0.4 mg sublingual 0.4 mg sublingual Q5-15M PRN chest 04/03/24 Unknown Rx tablet pain #20 tabs omeprazole 40 mg capsule,delayed 40 mg PO DAILY #90 caps 05/29/24 Unknown Rx release dulaglutide 3 mg/0.5 mL 3 mg (0.5 mL) subcut QWEEK #2 mL 09/09/24 Unknown Rx subcutaneous pen injector (Trulicity) tamsulosin 0.4 mg capsule 0.8 mg (2 x 0.4 mg) PO DAILY #90 09/09/24 Unknown Rx caps trazodone 50 mg tablet 50 mg PO DAILY #60 tabs 09/09/24 Unknown Rx ciprofloxacin 0.3 %-dexamethasone 3 drp LEFT EAR BID 7 days #7.5 mL 11/15/24 Unknown Rx 0.1 % ear drops,suspension Allergy/AdvReac Type Severity Reaction Status Date / Time acetaminophen (From NyQuil) Allergy Severe rash Verified 11/15/24 13:59 dextromethorphan (From Allergy Severe rash Verified 11/15/24 13:59 NyQuil) doxylamine (From NyQuil) Allergy Severe rash Verified 11/15/24 13:59 Penicillins Allergy Severe Other Verified 11/15/24 13:59 pseudoephedrine (From NyQuil) Allergy Severe rash Verified 11/15/24 13:59 Family History Father Diabetes Hypertension Mother Alzheimers disease Surgical History History of back surgery History of right knee joint replacement History of elbow surgery History of carpal tunnel release Social History Smoking Status: Former smoker alcohol intake: current alcohol intake frequency: a few times a month substance use type: does not use what type of physical activity do you participate in: none ROS ROS ED ROS Narrative Constitutional: Negative for fever, chills, malaise. ENT: Positive for ear discomfort. No sore throat or rhinorrhea. Respiratory: Negative for cough. Neuro: Negative for headache. EXAM Physical Exam Narrative Exam Narrative: CONST: Patient sitting in no acute distress. EYES: Normal inspection. ENT: Left ear has copious yellow drainage in the external canal and outer ear with mild swelling and irritation. Tender with palpation of the tragus. The auricle otherwise looks normal with no displacement, normal mastoid with no swelling tenderness or erythema. Normal right ear examination. Nares clear, normal posterior oropharynx. NECK: Normal inspection. RESP: No respiratory distress, CTAB. CVS: Regular rate and rhythm, no murmur, no gallop. SKIN: Color normal, no rash, warm, dry, intact. EXTREMITIES: Normal appearance, no pedal edema. NEURO: Alert and answering questions appropriately. PSYCH: Normal affect. Const Vital Signs: 11/15/24 13:57 11/15/24 16:54 Temperature 98.2 F 98.7 F Temperature Source Temporal Oral Pulse Rate 97 85 Respiratory Rate 16 16 Blood Pressure 104/91 H 142/75 H Blood Pressure Mean 95 97 Pulse Ox 98 97 Oxygen Delivery Method Room Air Room Air MDM MDM MDM Narrative Medical decision making narrative: History gathered from: Patient and Differential: Otitis externa, otitis media, mastoiditis, malignant otitis externa Consults: Hospitalist at [facility] 69-year-old male had his left ear flushed and wax removed 1 week ago and again today at urgent care and now has copious yellow drainage. Exam is consistent with otitis externa. He otherwise appears well and has normal vital signs. Since he is elderly and diabetic I ordered blood work. He has a normal white blood cell count at 10.2. There is an acute kidney injury with creatinine of 1.51?his baseline is around 1.1. Glucose is 523 without DKA. His states he is only taking metformin 1000 mg once a day per instructions of his doctor. He is prescribed Trulicity but it has not been filled for a month due to issues with the mail pharmacy. With the amount of purulent drainage from his ear, poorly come controlled blood sugars, and his age she is at high risk of developing malignant otitis externa and I feel he needs admitted. I administered IV fluids, 15 units of subcutaneous insulin, and IV Cipro. We do not have ENT coverage this weekend at [facility]. I discussed the case with Dr. Harrison the hospitalist at [facility] for transfer and she accepted the patient. We are awaiting a bed assignment for transfer. Lab Data Attestation: I reviewed the patient's lab results. Labs: Laboratory Results - last 24 hr 11/15/24 11/15/24 14:30 15:30 WBC 10.2 RBC 4.75 Hgb 14.3 Hct 43.6 MCV 91.8 MCH 30.1 MCHC 32.8 RDW Std Deviation 43.8 RDW Coeff of Evelyn 13.0 Plt Count 407 MPV 10.1 Immature Gran % (Auto) 0.500 Neut % (Auto) 73.8 H Lymph % (Auto) 17.2 L [place] % (Auto) 7.1 Eos % (Auto) 1.0 Baso % (Auto) 0.4 Absolute Neuts (auto) 7.5 Absolute Lymphs (auto) 1.75 Nucleated RBC % 0 Sodium 134 L Potassium 4.3 Chloride 103 Carbon Dioxide 24.0 Anion Gap 7 BUN 28 H Creatinine 1.51 H Estim Creat Clear Calc 51.10 Est GFR (MDRD) Af Amer 59 L Est GFR (MDRD) Non-Af 49 L BUN/Creatinine Ratio 18.5 Glucose 523 H* Calcium 9.1 POC Glucose > 500 H* Discharge Plan Triage Chief Complaint: Ear Problem ED Midlevel Provider: Roseline Moore ED Provider: Desmond Parks Dx/Rx/DC Orders Clinical Impression: Left otitis externa, Diabetes mellitus with hyperglycemia Instructions: ED External Ear Infection (Adult) Prescriptions: New ciprofloxacin-dexamethasone 0.3-0.1 % drops,suspension 3 drp LEFT EAR BID 7 Days Qty: 7.5 0RF No Action aspirin [Adult Low Dose Aspirin] 81 mg tablet,delayed release (DR/EC) 81 mg PO DAILY memantine 5 mg tablet 5 mg PO QAM Qty: 90 1RF (DME) blood-glucose meter [Accu-Chek Clarissa Plus Meter] Misc See Rx Instructions .Route Qty: 1 1RF Rx Instructions: As directed (DME) Accu-Chek Clarissa Plus test strp Strip See Rx Instructions .Route Qty: 100 3RF Rx Instructions: daily glipizide 5 mg tablet extended release 24hr 5 mg PO DAILY Qty: 90 1RF divalproex 125 mg capsule, delayed rel sprinkle 125 mg PO .COMPLEX Qty: 30 3RF Rx Instructions: 125 mg orally at bedtime finasteride 5 mg tablet See Rx Instructions .ROUTE .COMPLEX Qty: 90 3RF Dose Instruction: TAKE 1 TABLET EVERY DAY Rx Instructions: TAKE 1 TABLET EVERY DAY nitroglycerin 0.4 mg tablet, sublingual 0.4 mg SUBLINGUAL Q5-15M PRN (Reason: chest pain) Qty: 20 1RF Rx Instructions: until response; do not exceed 3 doses per episode trazodone 50 mg tablet 50 mg PO DAILY Qty: 60 2RF tamsulosin 0.4 mg capsule 0.8 mg PO DAILY Qty: 90 1RF Trulicity 3 mg/0.5 mL pen injector 3 mg subcut QWEEK Qty: 2 6RF (DME) blood sugar diagnostic Strip See Dose Instructions .ROUTE .MEDSUPPLY Qty: 50 6RF Dose Instruction: As directed Rx Instructions: As directed check daily (DME) pen needle, diabetic [Ultra-Thin II Ins Pen Iroquois] 29 gauge x 1/2 needle See Dose Instructions .ROUTE .MEDSUPPLY Qty: 30 3RF Dose Instruction: As directed Rx Instructions: As directed use once weekly for type 2 DM E11.9 (DME) Blood Glucose Test Strip See Rx Instructions .ROUTE .MEDSUPPLY Qty: 10 0RF Rx Instructions: use twice daily to monitor blood glucose (DME) blood-glucose meter Misc See Rx Instructions .ROUTE .MEDSUPPLY Qty: 1 0RF Rx Instructions: use twice daily to monitor blood glucose (DME) lancets 32 gauge misc See Rx Instructions .Route Qty: 100 3RF Rx Instructions: Use twice daily to monitor blood glucose (DME) True Metrix Level 1 Solution See Rx Instructions .Route Qty: 1 0RF Rx Instructions: As directed metformin 1,000 mg tablet 1,000 mg PO DAILY Qty: 90 3RF lisinopril 5 mg tablet See Rx Instructions .ROUTE .COMPLEX Qty: 90 0RF Dose Instruction: TAKE 1 TABLET EVERY DAY Rx Instructions: TAKE 1 TABLET EVERY DAY atorvastatin 80 mg tablet See Rx Instructions .ROUTE .COMPLEX Qty: 90 0RF Dose Instruction: TAKE 1 TABLET EVERY DAY Rx Instructions: TAKE 1 TABLET EVERY DAY amlodipine 10 mg tablet 10 mg PO QDAY Qty: 90 2RF paroxetine HCl 20 mg tablet See Rx Instructions .ROUTE .COMPLEX Qty: 90 0RF Dose Instruction: TAKE 1 TABLET EVERY DAY Rx Instructions: TAKE 1 TABLET EVERY DAY omeprazole 40 mg capsule,delayed release(DR/EC) 40 mg PO DAILY Qty: 90 0RF Rx Instructions: daily in the morning Primary Care Provider: Mark Wilson Referrals: Mark Wilson, [Primary Care Provider] - Print Language: Bangladeshi Disposition Disposition: Home, Self Care
[2024-11-15 14:46] LABS: Absolute Lymphocyte Count 1.75 X10^3/uL (0.83-4.51); Absolute Neutrophil Count 7.5 X10^3/uL (2.0-7.7); Basophil# 0.04 X10^3/uL; Basophil% 0.4 % (0-1); Hematocrit 43.6 % (40-54); Hemoglobin 14.3 g/dL (13.0-16.5); Lymphocyte # 1.75 X10^3/ul (0.83-4.51); Lymphocyte % 17.2 % (19-41); Mean Corp Hgb Conc 32.8 g/dL (32-36); Mean Corpuscular Hgb 30.1 pg (27.0-32.0); Mean Corpuscular Volume 91.8 fL (80-94); Mean Platelet Vol. 10.1 fl (6.2-12.0); Monocyte# 0.72 X10^3/uL; Monocyte% 7.1 % (0-10); NRBC Flagged by Analyzer 0 % (0-5); Neutrophil # 7.51 X10^3/uL (2.7-7.7); Neutrophil % 73.8 % (47-70); Platelet Count 407 K/mm3 (150-450); RBC Distribution Width SD 43.8 fl (35.1-43.9); Red Blood Count 4.75 M/mm3 (4.6-6.2); White Blood Count 10.2 K/mm3 (4.4-11.0)
[2024-11-15] MEDS: Ciprofloxacin 400 MG/200 ML BAG 200 MG IV (14:53)
[2024-11-15 15:16] LABS: Anion Gap 7 (5-15); BUN 28 mg/dL (7-18); BUN/Creat Ratio 18.5 RATIO (10-20); Calcium,Total 9.1 mg/dL (8.5-10.1); Chloride 103 mmol/L (98-107); Creatinine, Serum 1.51 mg/dL (0.70-1.30); EST Glomerular Filtration Rate 49 mL/min (>60); Est Glom Filt Rate - Afr Amer 59 mL/min (>60); Glucose 523 mg/dL (74-106); Potassium 4.3 mmol/L (3.5-5.1); Sodium Level 134 mmol/L (136-145)
[2024-11-15] MEDS: 0.9% Normal Saline (1000mL) 1,000 ML 999 ML IV (15:24)
[2024-11-15] MEDS: Insulin Lispro 100 UNIT/ML INSULN.PEN 15 UNIT SC (15:32)
[2024-11-15 15:52] LABS: Bedside Glucose > 500 mg/dL (74-106)
[2024-11-15] MEDS: LORazepam 2 MG/ML Syringe 0.5 MG IV (16:53)
[2024-11-15 16:54] VITALS: BP 142/75; PULSE 85; RESP 16; TEMP 37.1; O2SAT 97
--- NOTE | 2024-11-15 16:56 | NURSING ---
ACCEPTED AT [facility] AT [address]F
[2024-11-15 17:02] LABS: Bedside Glucose 253 mg/dL (74-106)
--- NOTE | 2024-11-15 18:53 | ED.RN ---
[facility] CALLED TO INFORM US RIDE TIME ETA IS MOVED UP TO 45-60 MIN([id number]).
--- NOTE | 2024-11-15 18:53 | ED.RN ---
REPORT CALLED TO [facility] NURSE ARASH. NO FURTHER QUESTIONS BY THE RECEIVING NURSE. SY DODD [id number] AT THIS TIME
== END 2024-11-15 19:54 | disposition home or self-care (01) ==
PROVIDERS: Physician Assistant; Emergency Provider Emergency Medicine; PCP Family Medicine; Visit Provider Emergency Medicine
DX: H60.92 Unspecified otitis externa, left ear (principal); E11.65 Type 2 diabetes mellitus with hyperglycemia; I10 Essential (primary) hypertension; E78.5 Hyperlipidemia, unspecified; Z87.891 Personal history of nicotine dependence; Z79.84 Long term (current) use of oral hypoglycemic drugs
CPT/HCPCS: 80048; 82962; 85025; 96365; 96366; 96375; 99283; A4216; J0744

== ENCOUNTER → 2024-11-22 | Outpatient (CLI) | payer MEDICARE, SELFPAY | END | disposition home or self-care (01) | PROVIDERS: PCP Family Medicine; Visit Provider Otolaryngology | DX: H92.10 Otorrhea, unspecified ear (principal) ==

== ENCOUNTER → 2024-12-23 | Outpatient (CLI) | payer MEDICARE, SELFPAY | END | disposition home or self-care (01) | LOC: LABSPEC 08:26 | PROVIDERS: PCP Family Medicine | DX: H93.92 Unspecified disorder of left ear (principal) | CPT/HCPCS: 87070; 87075; 87077; 87205 ==